=== PATIENT | female | born 1960 | race Caucasian/White ===

== ENCOUNTER 2016-07-20 17:26 | Inpatient (IN) | payer OTHER ==
[~2016-07-20] VITALS: Ht 160 cm; Wt 70.3 kg
[2016-07-20 18:53] LABS: DIFF SLIDE NUMBER 127; MEAN CORPUSCULAR HEMOGLOBIN 30.6 pg (27.0-33.0); MEAN CORPUSCULAR HGB CONC 33.8 g/dl (32.0-36.5); MEAN CORPUSCULAR VOLUME 90.4 fl (80.0-96.0); PLATELET COUNT, AUTOMATED 248 k/mm3 (150-450); RED CELL DISTRIBUTION WIDTH 13.2 % (11.5-14.5); WHITE BLOOD COUNT 8.8 K/mm3 (4.0-10.0)
[2016-07-20 19:13] LABS: ALBUMIN/GLOBULIN RATIO 0.87 (1.00-1.93); ALKALINE PHOSPHATASE 119 U/L (45-117); ALT/SGPT 40 U/L (12-78); ANION GAP 7 MEQ/L (8-16); AST/SGOT 22 U/L (15-37); BILIRUBIN,DIRECT 0.2 MG/DL (0.0-0.2); BILIRUBIN,TOTAL 0.7 MG/DL (0.2-1.0); BLOOD UREA NITROGEN 13 MG/DL (7-18); CALCIUM LEVEL 9.7 MG/DL (8.5-10.1); CARBON DIOXIDE LEVEL 28 MEQ/L (21-32); CHLORIDE LEVEL 105 MEQ/L (98-107); CREATININE FOR GFR 0.86 MG/DL (0.55-1.02); GLOMERULAR FILTRATION RATE > 60.0 (>51); GLUCOSE, FASTING 107 MG/DL (70-105); POTASSIUM SERUM 3.7 MEQ/L (3.5-5.1); SODIUM LEVEL 140 MEQ/L (136-145); TOTAL PROTEIN 8.6 GM/DL (6.4-8.2)
--- NOTE | 2016-07-20 19:15 | REP ---
Clinical: Altered mental status. Comparison: None. Findings: Extensive low density changes to the bifrontal white matter tracts (left greater than right) with some element of sparing to the gyri and subtle extension to the temporal lobes. Some more subtle low density changes may also be beginning to extend into the posterior parietal region. There is no associated hemorrhage. There is mild effacement to the anterior horn of the left lateral ventricle. No extra-axial fluid collection is appreciated. The calvarium is intact. The sinuses and mastoid air cells are clear. Impression: Extensive low density changes to the bifrontal white matter tracts with subtle extension into the temporal lobes and possible early similar changes extending to the bilateral parietal lobes. Differential diagnosis includes underlying neoplasm, multiple sclerosis, demyelinating diseases, and somewhat less likely acute infarctions. Consider MRI pre and postcontrast for further investigation. Signed by Faisal Kilgore MD 07/20/2016 07:07 P
--- NOTE | 2016-07-20 19:17 | REP ---
Clinical: Altered mental status . Comparison: None . Findings: The mediastinum and cardiac silhouette are stable and within normal limits for portable technique. The lung russo are clear without acute consolidation, effusion, or pneumothorax. Skeletal structures are intact. Impression: Normal portable chest x-ray Signed by Faisal Kilgore MD 07/20/2016 07:09 P
[2016-07-20 19:28] LABS: BASOPHILS 1 % (0-4); EOSINOPHILS 1 % (0-5)
[2016-07-20] MEDS: NS 1,000 ML IV SCH (20:48)
[2016-07-20] MEDS: levETIRAcetam INJection 500 MG in D5W MINI-BAG PLUS 100 ML IV SCH ×2 (21:00→22:15)
[2016-07-20] MEDS ORDERED: levETIRAcetam 250MG TABLET (KEPPRA) PO SCH (21:00)
[2016-07-20] MEDS ORDERED: BISACODYL 5 MG TAB PO PRN (21:00)
[2016-07-20] MEDS ORDERED: ACETAMINOPHEN TAB 650MG DOSE (2X325MG) PO PRN (21:00)
[2016-07-20] MEDS ORDERED: ONDANSETRON 4MG/2ML VIAL (J2405) IV PRN (21:00)
[2016-07-20] MEDS ORDERED: LORazepam 2 MG/ML VIAL (J2060) IV PRN (21:30)
[2016-07-20] MEDS: PANTOPRAZOLE 40MG INJ (PROTONIX) (C9113) IV SCH (22:12)
[2016-07-20 22:40] VITALS: BP 134/84
--- NOTE | 2016-07-20 22:40 | REPUSA ---
MRI of the brain Clinical history: altered mental status, facial droop. Technique: Multiecho multiplanar MRI images of the brain were obtained bbefore and after administrati on of 14 mm of intravenous gadolinium Prohance contrast. Diffusion weighted images with ADC mapping w as also obtained. Comparison: CT, 07/20/2016. Findings: There is a large enhancing mass along the midline of the frontal lobes, measuring 4.5 x 4.3 x 2.7 cm. This causes splaying of the frontal horns of the lateral ventricles bilaterally. Severe surroundi ng edema and mass effect is noted, Predominately in the subcortical white matter. Effacement of the s ulci is noted throughout the frontal lobes bilaterally. There is no extra-axial fluid collection. Th e other midline intracranial structures do not demonstrate any gross abnormalities. The cervical cran ial junction is intact. The orbits are unremarkable. The visualized paranasal sinuses and mastoid air cells are clear. The osseous structures and superficial soft tissues are unremarkable. The vascular structures demonstrate appropriate flow voids. Impression: Large enchancing mass along the midline of the frontal lobes, considered neoplasm until p roven otherwise. Most common diagnoses will be glioblastoma multiforme. Extensive surrounding mass ef fect and edema throughout the frontal lobes bilaterally are noted, causing mass effect and displacing of the frontal horns of the lateral ventricles bilaterally. No discrete evidence of acute hemorrhage or infarct was identified. Dr. Sloan was notified of these findings at 10:30 PM on 07/20/2016.
--- NOTE | 2016-07-20 22:41 | HPE ---
DATE OF ADMISSION: 07/20/2016 PRIMARY CARE PHYSICIAN: Patient does not have a primary care physician. OBSTETRICS/GYNECOLOGY: Patient is following with [facility] and being seen by JORGE Alejo. CHIEF COMPLAINT: 1. Altered mental status. 2. Two episodes of falls. HISTORY OF PRESENT ILLNESS: Ms. Sifuentes is a 56-year-old female with past medical history of premenopause by age and history of abnormal Pap smear (20 plus years ago), who presented to the emergency room (ER) due to altered mental status. Patient is accompanied by her mother and her , who expressed that about six months ago, they noticed patient become more confused and forgetful. This includes both long and short-term memory. However, before that, patient was working at [employer]; however, six months ago, she lost her job and her assumed that this is because she became more forgetful. However, she does not have any inappropriate behavior. Patient does not drink alcohol or use illegal drugs. Patient does not have fever, chills or night sweats. For the past two weeks, her symptoms became worse. Last night, patient fell from the bed twice and when the found her, she was very confused; however, she was not asleep. This morning, when she walked downstairs, her noticed that she is very confused and she just stares and does not talk. Patient did not have any episode of losing control of bowel or bladder. Patient does not have history of herpes. Patient does not have a history of eating raw meat. Patient has not traveled outside of the [place]. According to her , she became quieter; however, patient did not have any change of speech. Patient also complained about a headache for the past two weeks; however, patient denies vision or hearing changes. Patient also did not have any episode of seizure or seizure-type activities. Patient's appetite has decreased for the past two months and she only eats about two times a day and her food intake has decreased. During visit, patient had one episode of clonic seizure that lasted about 5-6 seconds. Also, during the episode, patient had one episode of projectile vomiting. Jerking mostly involved upper extremities. According to the patient' s family, this is new for her and she never had seizure-like activities. ALLERGIES: No known drug allergies. PAST MEDICAL HISTORY: 1. History of abnormal Pap smear 20 plus years ago. 2. Premenopause by age. PAST SURGICAL HISTORY: 1. Surgical laser cone by Dr. Cohen. 2. Lasik bilaterally, which was done 04/2011. HOME MEDICATIONS: None. SOCIAL HISTORY: Patient lives with her . According to the , patient stopped drinking about 1997; however, before that, patient was drinking occasionally. Patient does not have a history of tobacco use. Patient does not have history of illicit drug use. Patient has one dog. Patient has no children. Patient has traveled to the [facility] 20 years ago. FAMILY HISTORY: According to the patient's , patient has one sister and two brothers. One brother had multiple surgeries due to cancer; however, he does not know what kind of cancer. Patient's one sister and one brother have diabetes. Patient's mother has macular degeneration. Patient's mother is alive and has hypertension. REVIEW OF SYSTEMS: Review of systems cannot be obtained due to patient's altered mental status. PHYSICAL EXAMINATION: VITAL SIGNS: Temperature 97.1, pulse 89, respiratory rate 16, blood pressure 133/94, pulse oximetry 98% on room air. GENERAL APPEARANCE: Patient was lying in bed. Patient is awake, but not oriented to time, place and person. Patient responds to vocal commands. NECK: Soft. No lymphadenopathy. No thyromegaly. No jugular venous distention (JVD). HEART: Regular rate and rhythm. Normal S1, S2. ABDOMEN: Soft, nontender. Positive bowel sounds in all quadrants. LUNGS: Patient has clear breath sounds bilaterally. Good air movement. NEUROLOGIC: Cranial nerves II-XII cannot be obtained due to altered mental status. EXTREMITIES: Patient has no extremity weakness bilaterally; however, no lower extremity edema was appreciated. Patient has plus 2 pulses in both lower extremities. Patient has weak floorperson of both upper extremities. LABORATORY DATA: White blood cells 8.8, red blood cells 5.06, hemoglobin 15.5, hematocrit 45.7, MCV 90.4, MCH 30.6, MCHC 33.8, RDW 13.2, platelet count 243. Neutrophil percentage 66, lymphocyte percentage 33, monocyte 4, eosinophil 1, basophile 1, atypical lymphocytes 6, <<10:23>> normal, red blood cell morphology normal. Sodium 140, potassium 3.7, chloride 105, carbon dioxide 28, anion gap 7, BUN 13, creatinine 0.86, glomerular filtration rate 160, fasting glucose 107, lactic acid 1.3, calcium 9.7. Total bilirubin 0.7, direct bilirubin 0.2, AST 22, ALT 40, alkaline phosphatase 119, ammonia 10, total protein 8.6, albumin 4. Thyroid stimulating hormone (TSH) is pending. IMAGING TECHNIQUES: Head CT without contrast shows extensive low density changes to the bifrontal white matter tracts with subtle extension into the temporal lobe and possible early similar changes extending to the bilateral parietal lobes. Chest x-ray was negative. ASSESSMENT AND PLAN: 1. Altered mental status. Head CT raises the possibility to include neoplasm, multiple sclerosis, demyelinated disease. MRI pre- and post-contrast was ordered and result is pending at this time. Also, we have consulted Dr. Link. Appreciate Dr. Link's recommendations. Also, we have ordered an electroencephalogram (EEG), as well as a neurological check every 4 hours and, due to the possibility of aspiration, we will make the patient nothing by mouth and will start patient on intravenous (IV) fluid with aspiration precautions. Also, we have ordered a thyroid stimulating hormone (TSH) and the result is pending. Urinalysis (UA) and urine toxicology is pending at this time. 2. Possible seizure activity . We have ordered an EEG. Also, we have started patient on Keppra 500 mg IV twice a day, as well as Ativan 1 mg every 2 hours as needed for anxiety and/or agitation. At this point, patient is stable. Also, patient is nothing by mouth and on IV fluid with gastrointestinal (GI) prophylaxis. 3. Abnormal electrocardiogram (EKG). EKG, which was performed at the emergency room (ER) indicated sinus rhythm with possible left axis deviation. Also, patient has ST depression, mostly on the anterior leads. Therefore, I have ordered cardiac markers. Results are pending at this time. Due to altered mental status, patient does not provide accurate description of her symptoms and is denying chest pain. We will continue cardiac markers for three sets every 6 hours. 4. Deep venous thrombosis (DVT) prophylaxis. Patient is on Lovenox. 5. 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 Patient is stable. My preceptor for this patient encounter was Dr. William Mills. The preceptor was physically present in the building during the encounter and was fully available as needed. All aspects of the patient interview, examination, medical decision-making process, and medical care plan development were reviewed and approved by the preceptor. The preceptor is aware and concurs with the plan as stated in the body of this note and will attest to such by his/her co-signature. [facility]
[2016-07-20] MEDS ORDERED: dexameTHASONE 20 MG/5 ML VIAL (J1100) IV ONE (23:45)
[2016-07-20] MEDS ORDERED: dexameTHASONE 4 MG/ML 1ML VIAL (J1100) IV ONE (23:45)
--- NOTE | 2016-07-21 01:27 | CR ---
DATE OF CONSULTATION: 07/21/2016 PLEASE SEE MY TYPED NOTE. IT WILL SERVE MY CONSULT.
[2016-07-21 04:00] VITALS: BP 128/73
[2016-07-21 05:35] LABS: DIFF SLIDE NUMBER 73; MEAN CORPUSCULAR HEMOGLOBIN 30.5 pg (27.0-33.0); MEAN CORPUSCULAR HGB CONC 33.6 g/dl (32.0-36.5); MEAN CORPUSCULAR VOLUME 90.7 fl (80.0-96.0); PLATELET COUNT, AUTOMATED 247 k/mm3 (150-450); RED CELL DISTRIBUTION WIDTH 13.2 % (11.5-14.5); WHITE BLOOD COUNT 15.2 K/mm3 (4.0-10.0)
[2016-07-21 05:51] LABS: ALBUMIN 3.7 GM/DL (3.2-5.2); ALBUMIN/GLOBULIN RATIO 0.79 (1.00-1.93); ALKALINE PHOSPHATASE 114 U/L (45-117); ALT/SGPT 36 U/L (12-78); ANION GAP 8 MEQ/L (8-16); AST/SGOT 19 U/L (15-37); BILIRUBIN,TOTAL 0.8 MG/DL (0.2-1.0); BLOOD UREA NITROGEN 12 MG/DL (7-18); CARBON DIOXIDE LEVEL 25 MEQ/L (21-32); CHLORIDE LEVEL 105 MEQ/L (98-107); CREATININE FOR GFR 0.81 MG/DL (0.55-1.02); GLOMERULAR FILTRATION RATE > 60.0 (>51); GLUCOSE, FASTING 142 MG/DL (70-105); MAGNESIUM LEVEL 2.1 MG/DL (1.8-2.4); POTASSIUM SERUM 3.6 MEQ/L (3.5-5.1); SODIUM LEVEL 138 MEQ/L (136-145); TOTAL PROTEIN 8.4 GM/DL (6.4-8.2)
[2016-07-21] MEDS: dexameTHASONE 4 MG/ML 1ML VIAL (J1100) IV SCH ×3 (06:14→18:38)
--- NOTE | 2016-07-21 07:29 | ECGEPIP ---
Stationary ECG Study [facility] - ED Test Date: 2016-07-20 Pat Name: RASTA SIMEON Department: Room: - Gender: F Financial Service Representative: SinB: 1960 Requested By: DAVID Marroquin Order Number: [id number] Reading MD: Eugene Milian Measurements Intervals [place] Rate: 83 P: 4 SD: 145 QRS: -30 QRSD: 82 T: -11 QT: 329 QTc: 389 Interpretive Statements SINUS RHYTHM BORDERLINE LEFT AXIS DEVIATION ST DEVIATION AND MODERATE T-WAVE ABNORMALITY, CONSIDER ANTERIOR ISCHEMIA NO PRIORS Electronically Signed On 07-21-2016 7:29:26 EDT by Eugene Milian
[2016-07-21 08:00] VITALS: BP 149/90
[2016-07-21] MEDS: NS 1,000 ML IV SCH ×2 (08:24→19:03)
[2016-07-21] MEDS: ENOXAPARIN 40 MG/0.4 ML SYRINGE (J1650) SC SCH (10:49)
[2016-07-21] MEDS: levETIRAcetam INJection 500 MG in D5W MINI-BAG PLUS 100 ML IV SCH ×2 (10:49→20:14)
[2016-07-21 12:00] VITALS: BP_SYST 109; BP_SYST 149; BP_DIAS 50; BP_DIAS 90
--- NOTE | 2016-07-21 13:37 | IPNPDOC ---
Text Note Date of Service The patient was seen on 07/21/16. NOTE Subjective: Patient with aphasia. Denies any complaints. Objective: Vitals: (see below) General: No acute distress, laying comfortably in bed. HEENT: Moist mucous membranes. Neck: No JVD or lymphadenopathy Cardiac: RRR, No murmurs Pulm: Clear to auscultation b/l. No wheezing, rhonchi Abd: NT/ND + BS Ext: No edema or cyanosis Neuro: Strength 5/5 BUE. Moving lower extremities however is not consistent with following commands. Minimally verbal. Does have significant aphasia. CN 2-12 intact. F to N intact Negative Babinki. DTR 2-3+ throughout Labs (see below) Images: MRI Brain 07/20/16 There is a large enhancing mass along the midline of the frontal lobes, measuring 4.5 x 4.3 x 2.7 cm. This causes splaying of the frontal horns of the lateral ventricles bilaterally. Severe surrounding edema and mass effect is noted, Predominately in the subcortical white matter. Effacement of the sulci is noted throughout the frontal lobes bilaterally. There is no extra-axial fluid collection. The other midline intracranial structures do not demonstrate any gross abnormalities. The cervical cranial junction is intact. The orbits are unremarkable. The visualized paranasal sinuses and mastoid air cells are clear. The osseous structures and superficial soft tissues are unremarkable. The vascular structures demonstrate appropriate flow voids. Impression: Large enchancing mass along the midline of the frontal lobes, considered neoplasm until proven otherwise. Most common diagnoses will be glioblastoma multiforme. Extensive surrounding mass effect and edema throughout the frontal lobes bilaterally are noted, causing mass effect and displacing of the frontal horns of the lateral ventricles bilaterally. No discrete evidence of acute hemorrhage or infarct was identified. Assessment/Plan 1. Altered mental status/metabolic encephalopathy secondary to a large enhancing mass along the midline of the frontal lobes with cerebral edema/ seizure. MRI (see above). MRA/MRV pending. Patient does have extensive cerebral edema and is on Decadron per neurosurgery. Dr. Calabrese will be scheduling the patient for surgery on . Continue neuro checks. Neurology consulted as well given the patient's seizure activity on admission. Patient has also been maintained on Keppra 500 twice a day. EEG pending. 2. Abnormal EKG with ST depressions- patient denies chest pain. Cardiac enzymes negative. ? Related to the patient's underlying cerebral pathology 3. Leukocytosis- likely reactive secondary to steroids. No sores infection. Afebrile. 4.H/o harrison's palsy with left facial droop. Stable. DVT prophy: Lovenox Patient has a very poor prognosis given the extent of this mass and extensive cerebral edema. Patient is medically optimized for resection of the above cerebral mass. VS,Fishbone, I+O VS, Fishbone, I+O Laboratory Tests 07/20/16 18:42 Red Blood Count 5.06, Mean Corpuscular Volume 90.4, Mean Corpuscular Hemoglobin 30.6, Mean Corpuscular Hemoglobin Concent 33.8, Red Cell Distribution Width 13.2 07/21/16 05:11 Red Blood Count 4.95, Mean Corpuscular Volume 90.7, Mean Corpuscular Hemoglobin 30.5, Mean Corpuscular Hemoglobin Concent 33.6, Red Cell Distribution Width 13.2 , Calcium Level 9.0, Aspartate Amino Transf (AST/SGOT) 19, Alanine Aminotransferase (ALT/SGPT) 36, Alkaline Phosphatase 114, Total Bilirubin 0.8, Total Protein 8.4 H, Albumin 3.7 Vital Signs Date Time Temp Pulse Resp B/P (MAP) Pulse Ox O2 Delivery O2 Flow Rate FiO2 07/21/16 08:17 Room Air 07/21/16 08:00 97.4 95 18 149/90 (109) 99 I&O- Last 24 Hours up to 6 AM 07/21/16 05:59 Intake Total 0 ml Balance 0 ml STEFFI ELISE MD July 21, 2016 13:37
--- NOTE | 2016-07-21 14:53 | ECHO ---
DATE OF PROCEDURE: 07/21/2016 REFERRING PHYSICIAN: Dr. Adrian Murrieta DO. INDICATION: Abnormal ECG. HEIGHT: 157 cm. WEIGHT: 73 kg. MEASUREMENTS: Aortic root - 3.6 cm Left atrium - 2.4 cm Ventricular septum - 0.96 cm Posterior wall - 1.02 cm Left ventricle diastole - 3.9 cm LVOT - 1.8 cm Inferior vena cava - 1.7 cm DOPPLER MEASUREMENTS: Aortic valve velocity 171 cm/s LVOT velocity 108 cm/s LVOT VTI - 19.6 cm Mitral E velocity - 67.7 cm/s, mitral A velocity - 73.1 cm/s, Mitral deceleration time 162 ms. Pulmonary artery systolic pressure 21 mmHg by pulmonary acceleration method. MITRAL ANNULAR TISSUE DOPPLER: E prime septal - 10.0 cm/s E prime lateral - 9.6 cm/s DESCRIPTION: The rhythm was sinus. The image quality was fair. No pericardial effusion. This is a 2D, M-mode, color flow Doppler and pulse wave Doppler examination including mitral annular tissue Doppler. CONCLUSIONS: 1. Normal echocardiogram Doppler. 2. Normal left ventricle internal dimensions and wall thickness. Normal LV wall motion and wall thickening. No regional wall motion abnormalities. Normal LV systolic function. LVEF of 65% by visual estimate. Normal LV diastolic function.
[2016-07-21 16:00] VITALS: BP 120/56
--- NOTE | 2016-07-21 17:34 | REP ---
MRA BRAIN WITHOUT CONTRAST: HISTORY: Altered mental status. 3D [id number] MR angiography was performed at the level of the [place]. There is no aneurysm or arteriovenous malformation. Mild atherosclerotic disease involves the cavernous internal carotid arteries. Major intracranial vessels are patent. The vertebral arteries are equal in size. There are two prominent external carotid artery branches that appear to supply the patient's anterior cranial fossa meningoma. IMPRESSION: 1. There is no aneurysm or arteriovenous malformation. 2. Atherosclerotic disease as described above. 3. There are two prominent external carotid artery branches that appear to supply the anterior cranial fossa. Meningoma. MRA BRAIN WITHOUT AND WITH CONTRAST: HISTORY: Meningeoma. CONTRAST: ProHance 14.5 mL. Unenhanced 2D time of flight and contrast enhanced MR venography were performed. There are no filling defects in the deep venous system or dural sinuses. The right transverse and sigmoid sinuses are hypoplastic. There is stenosis of the distal right transverse sinus. A large anterior cranial fossa meningioma is present. There is intense homogenous enhancement with contrast. Several prominent blood vessels are present in the meningioma. There are no definite draining vessels overlying the meningioma. IMPRESSION: 1. There is no sinus thrombosis. 2. There is stenosis of the distal right transverse sinus. 3. There are several prominent vascular structures in the anterior cranial fossa meningoma. IMPRESSION: There are several prominent blood vessels in the anterior cranial fossa meningoma. Signed by Augusto Friedman MD 07/22/2016 08:52 A
[2016-07-21 20:00] VITALS: BP 141/72
[2016-07-21] MEDS: PANTOPRAZOLE 40MG INJ (PROTONIX) (C9113) IV SCH (20:13)
--- NOTE | 2016-07-21 20:37 | CR ---
DATE OF CONSULTATION: 07/21/2016 REFERRING PHYSICIAN: Dr. William Mills REASON FOR CONSULTATION: Altered mental status, seizures. HISTORY OF PRESENT ILLNESS: Petra Sifuentes is a 56-year-old woman with a history of premenopause by age, who presented to [facility] Emergency Department due to altered mental status for the last 6 months. According to the patient's , she became more confused and forgetful 6 months ago. She had difficulty with short-term and long-term memory. She does not have a primary care physician. She used to work at a [employer] but lost her job. Her thinks that it may be related to her memory difficulty. She later started working at [employer] and was let go as well. In the emergency department yesterday, she had a witnessed two or three minutes generalized tonic-clonic seizure without tongue biting or urinary incontinence. She did not have any seizures in past. She has intermittent neck and back pain, which is occasional and mild. She off and on had headaches for the last 6-12 months. She did not seek medical attention. She never had seizures before. She denies dysphagia, dysarthria, diplopia, urinary incontinence. DIAGNOSTIC STUDIES: Her CT scan of head, MRI scan of brain were reviewed and showed a large paramedian bilateral frontal mass with severe bilateral frontal and central edema in a butterfly wing appearance. PAST MEDICAL HISTORY: History of abnormal Pap smear 20 years ago, premenopause by age. LASIK surgery of eyes bilaterally in 2011. HOME MEDICATIONS: None. SOCIAL HISTORY: She lives with her . She does not have any children. She currently does not work. She denies smoking, alcohol or illicit drugs. FAMILY HISTORY: Father of bone cancer. One brother had multiple surgeries due to cancer. does not know type of cancer. REVIEW OF SYSTEMS: All systems were reviewed and were found to be noncontributory except as mentioned in history present illness. PHYSICAL EXAMINATION: Temperature 96.8, pulse 96, respiratory rate 18, blood pressure 120/56. Heart: Regular rate and rhythm. Lungs: Clear to auscultation. No pedal edema. No gross musculoskeletal abnormalities. No skin lesions were identified. No rash. Ears, nose and throat examination is within normal limits. She is awake, alert, oriented to self mostly. She is unable to tell me day, date, month, year, name of president or place. Her recall is 0/3 at 5 minutes. She cannot spell world backwards. She cannot do serial sevens. Extraocular muscles are intact. No facial weakness. Tongue and uvula are midline. 5/5 strength in all four extremities. Deep tendon flexes are 1+ throughout. Gait is within normal limits. Her plantars are upgoing bilaterally. ASSESSMENT: 1. Suspected malignant brain tumor, which can be primary glioblastoma multiforme or metastatic brain tumor. 2. Central nervous system (SHOT COAT TENDER) lymphoma is in differential diagnosis. 3. SHOT COAT TENDER vasculitis is a less likely differential. 4. Generalized tonic-clonic seizures, related to above. 5. Difficulty with short and long-term memory, likely related to effects of malignant brain tumor on mammillary body and anterior thalamus. PLAN: 1. Increase Keppra to 1000 mg by mouth or intravenous. 2. Decadron 4 mg IV every 6 hours. 3. Neurosurgery plans to do craniotomy tomorrow or day after tomorrow. 4. Biopsy result will define her clinical outcome and long-term prognosis, which will be guarded if this tumor turns out to be glioblastoma.
--- NOTE | 2016-07-21 20:37 | EEG ---
DATE OF PROCEDURE: 07/21/2016 REFERRING PHYSICIAN: Hebert Perez MD DIAGNOSIS: Seizure. [id number] HISTORY: The patient is 56-year-old woman who was admitted at [facility] due to altered mental status. She had a generalized tonic-clonic seizure. She was found to have bilateral frontal suspected malignant brain tumor. She is currently on Keppra, dexamethasone, etc. TECHNICAL DESCRIPTION: This digital EEG was recorded by 21 scalp, ear and two EKG electrodes and was reviewed in bipolar and referential montages following reformatting in 10-20 international electrode placement system. INTERPRETATION: The patient was noted to be in awake and drowsy states during this EEG. Resting awake background rhythm consisted of 3 - 4 Hz delta activity measuring 15 - 100 microvolts in amplitude. Stage I and II sleep were reviewed and were symmetric bilaterally. Hyperventilation could not be performed. Photic stimulation remained unremarkable. EKG revealed normal sinus rhythm. Left greater than right frontal and central sharp waves were noted. No clinical or electrographic seizures were recorded. CONCLUSION: This EEG in awake, drowsy states, stage I and II sleep is abnormal due to presence of generalized slowing and disorganization of background consistent with nonspecific diffuse cerebral dysfunction such as seen in encephalopathy due to multiple potential causes including toxic, metabolic, infectious, autoimmune, medication related or multifocal structural brain abnormalities. In addition, bilateral frontal and central epileptiform discharges were noted consistent with focal cortical structural or functional abnormality with epileptic potential. Clinical correlation is recommended.
[2016-07-21 23:59] VITALS: BP 125/92
[2016-07-22] MEDS: dexameTHASONE 4 MG/ML 1ML VIAL (J1100) IV SCH ×5 (00:27→23:18)
[2016-07-22 04:00] VITALS: BP 124/60
[2016-07-22] MEDS: NS 1,000 ML IV SCH ×4 (04:05→23:18)
[2016-07-22 05:39] LABS: DIFF SLIDE NUMBER 47; MEAN CORPUSCULAR HEMOGLOBIN 30.6 pg (27.0-33.0); MEAN CORPUSCULAR HGB CONC 33.6 g/dl (32.0-36.5); MEAN CORPUSCULAR VOLUME 91.1 fl (80.0-96.0); PLATELET COUNT, AUTOMATED 258 k/mm3 (150-450); RED CELL DISTRIBUTION WIDTH 13.3 % (11.5-14.5); WHITE BLOOD COUNT 18.3 K/mm3 (4.0-10.0)
[2016-07-22 05:58] LABS: ALBUMIN 3.1 GM/DL (3.2-5.2); ALBUMIN/GLOBULIN RATIO 0.76 (1.00-1.93); ALKALINE PHOSPHATASE 94 U/L (45-117); ALT/SGPT 30 U/L (12-78); ANION GAP 6 MEQ/L (8-16); AST/SGOT 15 U/L (15-37); BILIRUBIN,TOTAL 0.4 MG/DL (0.2-1.0); BLOOD UREA NITROGEN 15 MG/DL (7-18); CALCIUM LEVEL 8.8 MG/DL (8.5-10.1); CARBON DIOXIDE LEVEL 24 MEQ/L (21-32); CHLORIDE LEVEL 112 MEQ/L (98-107); CREATININE FOR GFR 0.74 MG/DL (0.55-1.02); GLOMERULAR FILTRATION RATE > 60.0 (>51); GLUCOSE, FASTING 152 MG/DL (70-105); MAGNESIUM LEVEL 2.2 MG/DL (1.8-2.4); POTASSIUM SERUM 3.8 MEQ/L (3.5-5.1); SODIUM LEVEL 142 MEQ/L (136-145); TOTAL PROTEIN 7.2 GM/DL (6.4-8.2)
[2016-07-22 08:00] VITALS: BP 107/62
[2016-07-22] MEDS: ENOXAPARIN 40 MG/0.4 ML SYRINGE (J1650) SC SCH (09:04)
[2016-07-22] MEDS: levETIRAcetam INJection 500 MG in D5W MINI-BAG PLUS 100 ML IV SCH (09:04)
[2016-07-22 12:15] VITALS: BP 112/71
[2016-07-22 15:30] VITALS: BP 120/73
--- NOTE | 2016-07-22 15:36 | IPNPDOC ---
Text Note Date of Service The patient was seen on 07/22/16. NOTE Subjective: Patient more awake and alert today - sitting in chair, conversing. Denies any complaints. Objective: Vitals: (see below) General: No acute distress, laying comfortably in bed. HEENT: Moist mucous membranes. Neck: No JVD or lymphadenopathy Cardiac: RRR, No murmurs Pulm: Clear to auscultation b/l. No wheezing, rhonchi Abd: NT/ND + BS Ext: No edema or cyanosis Neuro: Strength 5/5 BUE and BLE. AAOx3 CN 2-12 intact. F to N intact Negative Babinki. DTR 2-3+ throughout Labs (see below) Images: MRI Brain 07/20/16 There is a large enhancing mass along the midline of the frontal lobes, measuring 4.5 x 4.3 x 2.7 cm. This causes splaying of the frontal horns of the lateral ventricles bilaterally. Severe surrounding edema and mass effect is noted, Predominately in the subcortical white matter. Effacement of the sulci is noted throughout the frontal lobes bilaterally. There is no extra-axial fluid collection. The other midline intracranial structures do not demonstrate any gross abnormalities. The cervical cranial junction is intact. The orbits are unremarkable. The visualized paranasal sinuses and mastoid air cells are clear. The osseous structures and superficial soft tissues are unremarkable. The vascular structures demonstrate appropriate flow voids. Impression: Large enchancing mass along the midline of the frontal lobes, considered neoplasm until proven otherwise. Most common diagnoses will be glioblastoma multiforme. Extensive surrounding mass effect and edema throughout the frontal lobes bilaterally are noted, causing mass effect and displacing of the frontal horns of the lateral ventricles bilaterally. No discrete evidence of acute hemorrhage or infarct was identified. MRA/MRV 07/21/16 There is no aneurysm or arteriovenous malformation. Mild atherosclerotic disease involves the cavernous internal carotid arteries. Major intracranial vessels are patent. The vertebral arteries are equal in size. There are two prominent external carotid artery branches that appear to supply the patient's anterior cranial fossa meningoma. IMPRESSION: 1. There is no aneurysm or arteriovenous malformation. 2. Atherosclerotic disease as described above. 3. There are two prominent external carotid artery branches that appear to supply the anterior cranial fossa. Meningoma. MRA BRAIN WITHOUT AND WITH CONTRAST: HISTORY: Meningeoma. Unenhanced 2D time of flight and contrast enhanced MR venography were performed. There are no filling defects in the deep venous system or dural sinuses. The right transverse and sigmoid sinuses are hypoplastic. There is stenosis of the distal right transverse sinus. A large anterior cranial fossa meningioma is present. There is intense homogenous enhancement with contrast. Several prominent blood vessels are present in the meningioma. There are no definite draining vessels overlying the meningioma. IMPRESSION: 1. There is no sinus thrombosis. 2. There is stenosis of the distal right transverse sinus. 3. There are several prominent vascular structures in the anterior cranial fossa meningoma. IMPRESSION: There are several prominent blood vessels in the anterior cranial fossa meningoma. Assessment/Plan 1. Also mental status secondary to a large enhancing mass along the midline of the frontal lobes. MRI (see above). MRA/MRV (see above). Patient does have extensive cerebral edema and is on Decadron per neurosurgery. Dr. Calabrese will be scheduling the patient for surgery on . Continue neuro checks. Neurology consulted as well given the patient's seizure activity on admission. Patient has also been maintained on Keppra 1000 twice a day (Increased from 500mg given above EEG results. 2. Abnormal EKG with ST depressions- patient denies chest pain. Cardiac enzymes negative. ? Related to the patient's underlying cerebral pathology 3. Leukocytosis- likely reactive secondary to steroids. No sores infection. Afebrile. DVT prophy: Lovenox Patient has a very poor prognosis given the extent of this mass and extensive cerebral edema. Patient is medically optimized for resection of the above cerebral mass. VS,Fishbone, I+O VS, Fishbone, I+O Laboratory Tests 07/22/16 05:19 Red Blood Count 4.54, Mean Corpuscular Volume 91.1, Mean Corpuscular Hemoglobin 30.6, Mean Corpuscular Hemoglobin Concent 33.6, Red Cell Distribution Width 13.3 , Calcium Level 8.8, Aspartate Amino Transf (AST/SGOT) 15, Alanine Aminotransferase (ALT/SGPT) 30, Alkaline Phosphatase 94, Total Bilirubin 0.4, Total Protein 7.2, Albumin 3.1 L Vital Signs Date Time Temp Pulse Resp B/P (MAP) Pulse Ox O2 Delivery O2 Flow Rate FiO2 07/22/16 12:15 98.7 99 20 112/71 (85) 99 Room Air I&O- Last 24 Hours up to 6 AM 07/22/16 06:00 Intake Total 2225 ml Output Total 250 ml Balance 1975 ml STEFFI ELISE MD July 22, 2016 15:36
[2016-07-22 19:13] VITALS: BP 110/54
[2016-07-22] MEDS: PANTOPRAZOLE 40MG INJ (PROTONIX) (C9113) IV SCH (21:49)
[2016-07-22] MEDS: levETIRAcetam 250MG TABLET (KEPPRA) PO SCH (21:49)
[2016-07-22 23:20] VITALS: BP 102/65
[2016-07-23 03:03] VITALS: BP 127/72
[2016-07-23] MEDS: dexameTHASONE 4 MG/ML 1ML VIAL (J1100) IV SCH ×4 (05:23→23:51)
[2016-07-23 06:18] LABS: ALBUMIN 2.7 GM/DL (3.2-5.2); ALBUMIN/GLOBULIN RATIO 0.69 (1.00-1.93); ALKALINE PHOSPHATASE 96 U/L (45-117); ALT/SGPT 25 U/L (12-78); ANION GAP 10 MEQ/L (8-16); AST/SGOT 12 U/L (15-37); BILIRUBIN,TOTAL 0.3 MG/DL (0.2-1.0); BLOOD UREA NITROGEN 13 MG/DL (7-18); CALCIUM LEVEL 8.1 MG/DL (8.5-10.1); CARBON DIOXIDE LEVEL 19 MEQ/L (21-32); CHLORIDE LEVEL 111 MEQ/L (98-107); CREATININE FOR GFR 0.61 MG/DL (0.55-1.02); GLOMERULAR FILTRATION RATE > 60.0 (>51); GLUCOSE, FASTING 140 MG/DL (70-105); MAGNESIUM LEVEL 2.1 MG/DL (1.8-2.4); POTASSIUM SERUM 3.7 MEQ/L (3.5-5.1); SODIUM LEVEL 140 MEQ/L (136-145); TOTAL PROTEIN 6.6 GM/DL (6.4-8.2)
[2016-07-23 06:19] LABS: DIFF SLIDE NUMBER 29; MEAN CORPUSCULAR HEMOGLOBIN 30.2 pg (27.0-33.0); MEAN CORPUSCULAR HGB CONC 32.9 g/dl (32.0-36.5); MEAN CORPUSCULAR VOLUME 91.8 fl (80.0-96.0); PLATELET COUNT, AUTOMATED 234 k/mm3 (150-450); RED CELL DISTRIBUTION WIDTH 13.5 % (11.5-14.5); WHITE BLOOD COUNT 17.7 K/mm3 (4.0-10.0)
[2016-07-23 08:00] VITALS: BP 123/86
[2016-07-23] MEDS: NS 1,000 ML IV SCH ×2 (08:12→18:12)
[2016-07-23] MEDS: levETIRAcetam 250MG TABLET (KEPPRA) PO SCH ×2 (09:55→21:08)
[2016-07-23] MEDS: ENOXAPARIN 40 MG/0.4 ML SYRINGE (J1650) SC SCH (09:59)
[2016-07-23 11:30] VITALS: BP 118/68
--- NOTE | 2016-07-23 13:36 | REP ---
MRA BRAIN WITHOUT CONTRAST: HISTORY: Altered mental status. 3D [id number] MR angiography was performed at the level of the [place]. A small aneurysm is present arising from the cavernous right internal carotid artery. The aneurysm measures 2.6 x 2.6 mm. The aneurysm projects medial from the cavernous right internal carotid artery. There is no other aneurysm or arteriovenous malformation. There are no atherosclerotic lesions. Major intracranial vessels are patent. The vertebral arteries are equal in size. 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 Signed by Augusto Friedman MD 07/23/2016 01:39 P
--- NOTE | 2016-07-23 14:29 | IPNPDOC ---
Text Note Date of Service The patient was seen on 07/23/16. NOTE Subjective: Patient awake and alert today. Denies any complaints. Objective: Vitals: (see below) General: No acute distress, laying comfortably in bed. HEENT: Moist mucous membranes. Neck: No JVD or lymphadenopathy Cardiac: RRR, No murmurs Pulm: Clear to auscultation b/l. No wheezing, rhonchi Abd: NT/ND + BS Ext: No edema or cyanosis Neuro: Strength 5/5 BUE and BLE. AAOx3 Left facial droop h/o harrison's palsy CN 2-12 intact. F to N intact Negative Babinki. DTR 2-3+ throughout Labs (see below) Images: MRI Brain 07/20/16 There is a large enhancing mass along the midline of the frontal lobes, measuring 4.5 x 4.3 x 2.7 cm. This causes splaying of the frontal horns of the lateral ventricles bilaterally. Severe surrounding edema and mass effect is noted, Predominately in the subcortical white matter. Effacement of the sulci is noted throughout the frontal lobes bilaterally. There is no extra-axial fluid collection. The other midline intracranial structures do not demonstrate any gross abnormalities. The cervical cranial junction is intact. The orbits are unremarkable. The visualized paranasal sinuses and mastoid air cells are clear. The osseous structures and superficial soft tissues are unremarkable. The vascular structures demonstrate appropriate flow voids. Impression: Large enchancing mass along the midline of the frontal lobes, considered neoplasm until proven otherwise. Most common diagnoses will be glioblastoma multiforme. Extensive surrounding mass effect and edema throughout the frontal lobes bilaterally are noted, causing mass effect and displacing of the frontal horns of the lateral ventricles bilaterally. No discrete evidence of acute hemorrhage or infarct was identified. MRA/MRV 07/21/16 There is no aneurysm or arteriovenous malformation. Mild atherosclerotic disease involves the cavernous internal carotid arteries. Major intracranial vessels are patent. The vertebral arteries are equal in size. There are two prominent external carotid artery branches that appear to supply the patient's anterior cranial fossa meningoma. IMPRESSION: 1. There is no aneurysm or arteriovenous malformation. 2. Atherosclerotic disease as described above. 3. There are two prominent external carotid artery branches that appear to supply the anterior cranial fossa. Meningoma. MRA BRAIN WITHOUT AND WITH CONTRAST: HISTORY: Meningeoma. Unenhanced 2D time of flight and contrast enhanced MR venography were performed. There are no filling defects in the deep venous system or dural sinuses. The right transverse and sigmoid sinuses are hypoplastic. There is stenosis of the distal right transverse sinus. A large anterior cranial fossa meningioma is present. There is intense homogenous enhancement with contrast. Several prominent blood vessels are present in the meningioma. There are no definite draining vessels overlying the meningioma. IMPRESSION: 1. There is no sinus thrombosis. 2. There is stenosis of the distal right transverse sinus. 3. There are several prominent vascular structures in the anterior cranial fossa meningoma. IMPRESSION: There are several prominent blood vessels in the anterior cranial fossa meningoma. Assessment/Plan 1. Also mental status secondary to a large enhancing mass along the midline of the frontal lobes. MRI (see above). MRA/MRV (see above). Patient does have extensive cerebral edema and is on Decadron per neurosurgery. Dr. Calabrese will be scheduling the patient for surgery on Wednesday. Continue neuro checks. Neurology consulted as well given the patient's seizure activity on admission. Patient has also been maintained on Keppra 1000 twice a day (Increased from 500mg given above EEG results. 2. Abnormal EKG with ST depressions- patient denies chest pain. Cardiac enzymes negative. ? Related to the patient's underlying cerebral pathology 3. Leukocytosis- likely reactive secondary to steroids. No sores infection. Afebrile. 4. H/o harrison's palsy with left facial droop. Stable. DVT prophy: Lovenox Patient has a very poor prognosis given the extent of this mass and extensive cerebral edema. Patient is medically optimized for resection of the above cerebral mass. RCRI score 1; 0.9% risk of major cardiac event VS,Fishbone, I+O VS, Fishbone, I+O Laboratory Tests 07/23/16 05:46 Red Blood Count 4.26, Mean Corpuscular Volume 91.8, Mean Corpuscular Hemoglobin 30.2, Mean Corpuscular Hemoglobin Concent 32.9, Red Cell Distribution Width 13.5 , Calcium Level 8.1 L, Aspartate Amino Transf (AST/SGOT) 12 L, Alanine Aminotransferase (ALT/SGPT) 25, Alkaline Phosphatase 96, Total Bilirubin 0.3, Total Protein 6.6, Albumin 2.7 L Vital Signs Date Time Temp Pulse Resp B/P (MAP) Pulse Ox O2 Delivery O2 Flow Rate FiO2 07/23/16 11:30 98.3 62 22 118/68 (85 94 Room Air I&O- Last 24 Hours up to 6 AM 07/23/16 06:00 Intake Total 3010 ml Output Total 750 ml Balance 2260 ml STEFFI ELISE MD Jul 23, 2016 14:29
[2016-07-23 16:00] VITALS: BP 124/85
[2016-07-23 19:16] VITALS: BP 129/81
[2016-07-23 20:00] VITALS: PULSE 66; PULSE 69
[2016-07-23] MEDS: PANTOPRAZOLE 40MG INJ (PROTONIX) (C9113) IV SCH (21:07)
[2016-07-24] VITALS (10 sets, daily range): BP systolic 103–135; BP diastolic 67–79; PULSE 47–73
[2016-07-24] MEDS: dexameTHASONE 4 MG/ML 1ML VIAL (J1100) IV SCH ×3 (05:37→18:17)
[2016-07-24] MEDS: NS 1,000 ML IV SCH (05:38)
[2016-07-24 06:03] LABS: DIFF SLIDE NUMBER 16; MEAN CORPUSCULAR HEMOGLOBIN 30.2 pg (27.0-33.0); MEAN CORPUSCULAR HGB CONC 33.1 g/dl (32.0-36.5); MEAN CORPUSCULAR VOLUME 91.4 fl (80.0-96.0); PLATELET COUNT, AUTOMATED 238 k/mm3 (150-450); RED CELL DISTRIBUTION WIDTH 13.4 % (11.5-14.5); WHITE BLOOD COUNT 11.6 K/mm3 (4.0-10.0)
[2016-07-24 06:15] LABS: ALBUMIN 2.6 GM/DL (3.2-5.2); ALBUMIN/GLOBULIN RATIO 0.68 (1.00-1.93); ALKALINE PHOSPHATASE 95 U/L (45-117); ALT/SGPT 26 U/L (12-78); ANION GAP 9 MEQ/L (8-16); AST/SGOT 12 U/L (15-37); BILIRUBIN,TOTAL 0.2 MG/DL (0.2-1.0); BLOOD UREA NITROGEN 14 MG/DL (7-18); CALCIUM LEVEL 8.1 MG/DL (8.5-10.1); CARBON DIOXIDE LEVEL 23 MEQ/L (21-32); CHLORIDE LEVEL 108 MEQ/L (98-107); CREATININE FOR GFR 0.74 MG/DL (0.55-1.02); GLOMERULAR FILTRATION RATE > 60.0 (>51); GLUCOSE, FASTING 137 MG/DL (70-105); MAGNESIUM LEVEL 2.1 MG/DL (1.8-2.4); POTASSIUM SERUM 3.6 MEQ/L (3.5-5.1); SODIUM LEVEL 140 MEQ/L (136-145); TOTAL PROTEIN 6.4 GM/DL (6.4-8.2)
[2016-07-24] MEDS ORDERED: POTASSIUM CHLORIDE 10 MEQ SR TABLET PO ONE (07:45)
[2016-07-24] MEDS: ENOXAPARIN 40 MG/0.4 ML SYRINGE (J1650) SC SCH (08:15)
[2016-07-24] MEDS: levETIRAcetam 250MG TABLET (KEPPRA) PO SCH ×2 (08:15→20:37)
[2016-07-24] MEDS ORDERED: SLF 3 ML SYR IV PRN (08:30)
[2016-07-24] MEDS: SLF 3 ML SYR IV SCH ×2 (12:27→18:18)
--- NOTE | 2016-07-24 12:58 | IPNPDOC ---
Text Note Date of Service The patient was seen on 07/24/16. NOTE Subjective: Feels well today. OOB and ambulating. No deficits. Objective: Vitals: (see below) General: No acute distress, laying comfortably in bed. HEENT: Moist mucous membranes. Neck: No JVD or lymphadenopathy Cardiac: RRR, No murmurs Pulm: Clear to auscultation b/l. No wheezing, rhonchi Abd: NT/ND + BS Ext: No edema or cyanosis Neuro: Strength 5/5 BUE and BLE. AAOx3 CN 2-12 intact. H/o harrison's palsy with left facial droop. F to N intact Negative Babinki. DTR 2-3+ throughout Labs (see below) Images: MRI Brain 07/20/16 There is a large enhancing mass along the midline of the frontal lobes, measuring 4.5 x 4.3 x 2.7 cm. This causes splaying of the frontal horns of the lateral ventricles bilaterally. Severe surrounding edema and mass effect is noted, Predominately in the subcortical white matter. Effacement of the sulci is noted throughout the frontal lobes bilaterally. There is no extra-axial fluid collection. The other midline intracranial structures do not demonstrate any gross abnormalities. The cervical cranial junction is intact. The orbits are unremarkable. The visualized paranasal sinuses and mastoid air cells are clear. The osseous structures and superficial soft tissues are unremarkable. The vascular structures demonstrate appropriate flow voids. Impression: Large enchancing mass along the midline of the frontal lobes, considered neoplasm until proven otherwise. Most common diagnoses will be glioblastoma multiforme. Extensive surrounding mass effect and edema throughout the frontal lobes bilaterally are noted, causing mass effect and displacing of the frontal horns of the lateral ventricles bilaterally. No discrete evidence of acute hemorrhage or infarct was identified. MRA/MRV 07/21/16 There is no aneurysm or arteriovenous malformation. Mild atherosclerotic disease involves the cavernous internal carotid arteries. Major intracranial vessels are patent. The vertebral arteries are equal in size. There are two prominent external carotid artery branches that appear to supply the patient's anterior cranial fossa meningoma. IMPRESSION: 1. There is no aneurysm or arteriovenous malformation. 2. Atherosclerotic disease as described above. 3. There are two prominent external carotid artery branches that appear to supply the anterior cranial fossa. Meningoma. MRA BRAIN WITHOUT AND WITH CONTRAST: HISTORY: Meningeoma. Unenhanced 2D time of flight and contrast enhanced MR venography were performed. There are no filling defects in the deep venous system or dural sinuses. The right transverse and sigmoid sinuses are hypoplastic. There is stenosis of the distal right transverse sinus. A large anterior cranial fossa meningioma is present. There is intense homogenous enhancement with contrast. Several prominent blood vessels are present in the meningioma. There are no definite draining vessels overlying the meningioma. IMPRESSION: 1. There is no sinus thrombosis. 2. There is stenosis of the distal right transverse sinus. 3. There are several prominent vascular structures in the anterior cranial fossa meningoma. IMPRESSION: There are several prominent blood vessels in the anterior cranial fossa meningoma. Assessment/Plan 1. Also mental status secondary to a large enhancing mass along the midline of the frontal lobes. MRI (see above). MRA/MRV (see above). Patient does have extensive cerebral edema and is on Decadron per neurosurgery. Dr. Calabrese will be scheduling the patient for surgery on Wednesday. Continue neuro checks. Neurology consulted as well given the patient's seizure activity on admission. Patient has also been maintained on Keppra 1000 twice a day (Increased from 500mg given above EEG results. 2. Abnormal EKG with ST depressions- patient denies chest pain. Cardiac enzymes negative. ? Related to the patient's underlying cerebral pathology 3. Sinus bradycardia - stable. Asymptomatic. Cardio consulted. 4. Leukocytosis- Improved. Likely reactive secondary to steroids. No source of infection. Afebrile. 5. H/o harrison's palsy with left facial droop. Stable. DVT prophy: Lovenox Patient has a very poor prognosis given the extent of this mass and extensive cerebral edema. Patient is medically optimized for resection of the above cerebral mass. RCRI score 1; 0.9% risk of major cardiac event Participating with PT. VS,Fishbone, I+O VS, Fishbone, I+O Laboratory Tests 07/24/16 05:22 Red Blood Count 4.31, Mean Corpuscular Volume 91.4, Mean Corpuscular Hemoglobin 30.2, Mean Corpuscular Hemoglobin Concent 33.1, Red Cell Distribution Width 13.4 , Calcium Level 8.1 L, Aspartate Amino Transf (AST/SGOT) 12 L, Alanine Aminotransferase (ALT/SGPT) 26, Alkaline Phosphatase 95, Total Bilirubin 0.2, Total Protein 6.4, Albumin 2.6 L Vital Signs Date Time Temp Pulse Resp B/P (MAP) Pulse Ox O2 Delivery O2 Flow Rate FiO2 07/24/16 08:17 Room Air 07/24/16 07:59 97.7 48 18 109/67 (81) 97 I&O- Last 24 Hours up to 6 AM 07/24/16 06:00 Intake Total 4680 ml Output Total 1700 ml Balance 2980 ml STEFFI ELISE MD Jul 24, 2016 12:58
--- NOTE | 2016-07-24 19:47 | CR ---
DATE OF CONSULTATION: 07/24/2016 REFERRING PROVIDER: Dr. Hebert Perez. PRIMARY PHYSICIAN: None. NEUROLOGIST: Dr. Dorina Becker. NEUROSURGEON: Dr. Collin Calabrese. REASON FOR CONSULTATION: Abnormal electrocardiogram (EKG) preoperative. HISTORY OF PRESENT ILLNESS: A 56-year-old woman, very unfortunate, has been having migraine headaches on-and-off for the last two years, but more lately, came to the hospital on the recommendation of her mother and her because they had noted that recently she has developed some deterioration in her mental status and she was having more headaches. She has developed some loss in her memory both short and long-term memory. She also has been having problem finding words to express herself, and she has been falling. She has not seen a physician for a long time, and she has no primary physician outside the hospital. She came to the hospital on 07/20/2016, and she had a head CT that revealed extensive low-density changes in the frontal lobes with some extension to the temporal lobes and to the parietal lobes. Further workup including brain MRI revealed evidence consistent with a tumor that could be a meningioma with associated brain edema. There is no acute infarct or bleed. She also had MRA of the brain that revealed no aneurysm, but mild atherosclerotic disease. There was also a 2.6 cm cavernous right internal carotid artery aneurysm. Not mentioned above, while in the emergency room (ER), the patient had one episode of seizure and she was seen by neurology, started on Keppra and Decadron. The working differential diagnostic it seems has been metastatic brain tumor versus central nervous system lymphoma versus primary glioblastoma multiforme versus meningioma. The patient also was seen by neurosurgeon, Dr. Calabrese, and the plan is to proceed with surgery this coming Wednesday. When I saw Mrs. Petra Sifuentes on the floor, she was lying supine in bed in no acute distress at rest, and she denies any history of chest pain, shortness of breath, palpitations, pedal edema, orthopnea, syncope or near syncope. She denies hypertension, hyperlipidemia, diabetes mellitus. She is a former smoker and she had stopped many years ago. She denies any nausea, vomiting, diarrhea, melena or hematemesis. She has no cough or hemoptysis. She denies any focal manifestation. PAST MEDICAL HISTORY: Positive for Vieira's palsy at the age of 30; otherwise unremarkable. PAST SURGICAL HISTORY: Positive for Lasik surgery bilaterally in 2011, and she had minor surgery for an abnormal Pap smear about 20 years ago. FAMILY HISTORY: Positive for cancer in one of her brothers with multiple cancers, but she could not elaborate. She also has a family history positive for diabetes mellitus. Her mother is alive with hypertension. ADVANCE DIRECTIVES: Patient is FULL CODE. ALLERGIES: No known drug allergies. PHYSICAL EXAMINATION: The patient is alert and awake in no acute distress at rest, very pleasant, and her vital signs today reveal a blood pressure of 103/71, with a pulse of 64, respirations 18, and her maximum temperature was 98.8 degrees Fahrenheit with an oxygen saturation of 96-97% on room air. She has a positive fluid balance of 3.8 liters on 07/23/2016, and on 07/22, the fluid balance was 1.6 liters. Examination of the head is atraumatic. Deformity secondary to prior Vieira's palsy noted. Neck is supple. No jugular venous distention (JVD). No carotid bruits. Lungs were clear bilaterally on auscultation without any wheezing or crackles. The heart examination revealed normal S1, S2 without gallops. The point of maximum impulse (PMI) is not displaced. There is no rub. I could not appreciate any murmurs. Abdomen is unremarkable. Extremities reveal no pedal edema. Neurological examination is negative for focal deficit. LABORATORY DATA: CBC done today revealed a WBC of 11.6, hemoglobin 13.0, hematocrit 39.4, and platelets 238,000. BMP done today revealed a sodium of 140, potassium 3.6, chloride 108, CO2 23, BUN 14, creatinine 0.74, GFR greater than 60, fasting glucose 137 and calcium 8.1. Serum magnesium is 2.1. Liver enzymes reveal a total bilirubin of 0.2, AST 12, ALT 26, alkaline phosphatase 95, total protein 6.4, albumin 2.6. Serum troponin I was negative. Serum lactic acid on 07/20 was 1.3. Serum TSH on 07/20 was 0.41. Chest x-ray on 07/20/2016, revealed normal study, no cardiomegaly and no manifestation of heart failure or pleural effusion. Electrocardiogram done on admission 07/20/2016, revealed normal sinus rhythm with left axis deviation and nonspecific ST-T abnormalities noted mainly in the precordial leads. No prior electrocardiogram for comparison. Telemetry revealed episode of sinus bradycardia and the lowest reported was about 40 and 45 beats per minute. IMPRESSION: A 56-year-old female with no cardiac symptoms and no significant risk factors for coronary artery disease (CAD), came to the hospital with altered mental status and was found to have an intracranial mass. The immediate plan is to proceed with frontal craniotomy this coming Wednesday. She also had one episode of seizure while in the ER, and has been stable on Decadron and Keppra. She also had associated brain edema on the imaging study of the brain. EKG was abnormal with ST-T abnormalities, and that was probably most likely related to the intracranial process. It will be repeated and I will assess her left ventricular systolic function while in the hospital with an echocardiogram. She has no significant valvular heart disease noted on examination and I assume that most likely the (please verify) will be normal, but the EKG might be worse. She is most likely at low risk for this surgery based on her overall cardiac risk factors, and she may proceed as scheduled. Further recommendation will be given after reviewing her echocardiogram. There is no need for any cardiac medication at this present time, but fluid overload should be avoided and she will need deep venous thrombosis (DVT) prophylaxis. We also should keep her on telemetry. I will ask Dr. Coats to see her for me over the weekend after reviewing her echocardiogram, and he will provide further recommendations if needed. It was a pleasure to participate in the care of Mrs. Petra Sifuentes for her underlying cardiac condition. Please do not hesitate to call if any questions.
[2016-07-24] MEDS: PANTOPRAZOLE 40MG INJ (PROTONIX) (C9113) IV SCH (20:37)
[2016-07-25] VITALS (7 sets, daily range): BP systolic 116–131; BP diastolic 68–90; PULSE 48–62
[2016-07-25] MEDS: dexameTHASONE 4 MG/ML 1ML VIAL (J1100) IV SCH ×5 (00:08→23:46)
[2016-07-25 05:46] LABS: DIFF SLIDE NUMBER 10; MEAN CORPUSCULAR HEMOGLOBIN 30.8 pg (27.0-33.0); MEAN CORPUSCULAR VOLUME 90.7 fl (80.0-96.0); PLATELET COUNT, AUTOMATED 267 k/mm3 (150-450); RED CELL DISTRIBUTION WIDTH 13.4 % (11.5-14.5); WHITE BLOOD COUNT 11.4 K/mm3 (4.0-10.0)
[2016-07-25 06:20] LABS: ALBUMIN 2.7 GM/DL (3.2-5.2); ALBUMIN/GLOBULIN RATIO 0.69 (1.00-1.93); ALKALINE PHOSPHATASE 85 U/L (45-117); ALT/SGPT 33 U/L (12-78); ANION GAP 9 MEQ/L (8-16); AST/SGOT 15 U/L (15-37); BILIRUBIN,TOTAL 0.2 MG/DL (0.2-1.0); BLOOD UREA NITROGEN 14 MG/DL (7-18); CALCIUM LEVEL 8.2 MG/DL (8.5-10.1); CARBON DIOXIDE LEVEL 23 MEQ/L (21-32); CHLORIDE LEVEL 104 MEQ/L (98-107); CREATININE FOR GFR 0.69 MG/DL (0.55-1.02); GLOMERULAR FILTRATION RATE > 60.0 (>51); GLUCOSE, FASTING 138 MG/DL (70-105); MAGNESIUM LEVEL 2.4 MG/DL (1.8-2.4); POTASSIUM SERUM 3.9 MEQ/L (3.5-5.1); SODIUM LEVEL 136 MEQ/L (136-145); TOTAL PROTEIN 6.6 GM/DL (6.4-8.2)
[2016-07-25] MEDS: SLF 3 ML SYR IV SCH ×3 (06:27→20:41)
[2016-07-25 06:55] LABS: BANDS 1 % (< 11)
[2016-07-25 06:56] LABS: ANISOCYTOSIS 1+
[2016-07-25] MEDS: levETIRAcetam 250MG TABLET (KEPPRA) PO SCH ×2 (09:14→20:40)
[2016-07-25] MEDS: ENOXAPARIN 40 MG/0.4 ML SYRINGE (J1650) SC SCH (09:16)
--- NOTE | 2016-07-25 12:10 | IPNPDOC ---
Text Note Date of Service The patient was seen on 07/25/16. NOTE Subjective: Feels well today. OOB and ambulating. No deficits. Objective: Vitals: (see below) General: No acute distress, laying comfortably in bed. HEENT: Moist mucous membranes. Neck: No JVD or lymphadenopathy Cardiac: RRR, No murmurs Pulm: Clear to auscultation b/l. No wheezing, rhonchi Abd: NT/ND + BS Ext: No edema or cyanosis Neuro: Strength 5/5 BUE and BLE. AAOx3 CN 2-12 intact. H/o harrison's palsy with left facial droop. F to N intact Negative Babinki. DTR 2-3+ throughout Labs (see below) Images: MRI Brain 07/20/16 There is a large enhancing mass along the midline of the frontal lobes, measuring 4.5 x 4.3 x 2.7 cm. This causes splaying of the frontal horns of the lateral ventricles bilaterally. Severe surrounding edema and mass effect is noted, Predominately in the subcortical white matter. Effacement of the sulci is noted throughout the frontal lobes bilaterally. There is no extra-axial fluid collection. The other midline intracranial structures do not demonstrate any gross abnormalities. The cervical cranial junction is intact. The orbits are unremarkable. The visualized paranasal sinuses and mastoid air cells are clear. The osseous structures and superficial soft tissues are unremarkable. The vascular structures demonstrate appropriate flow voids. Impression: Large enchancing mass along the midline of the frontal lobes, considered neoplasm until proven otherwise. Most common diagnoses will be glioblastoma multiforme. Extensive surrounding mass effect and edema throughout the frontal lobes bilaterally are noted, causing mass effect and displacing of the frontal horns of the lateral ventricles bilaterally. No discrete evidence of acute hemorrhage or infarct was identified. MRA/MRV 07/21/16 There is no aneurysm or arteriovenous malformation. Mild atherosclerotic disease involves the cavernous internal carotid arteries. Major intracranial vessels are patent. The vertebral arteries are equal in size. There are two prominent external carotid artery branches that appear to supply the patient's anterior cranial fossa meningoma. IMPRESSION: 1. There is no aneurysm or arteriovenous malformation. 2. Atherosclerotic disease as described above. 3. There are two prominent external carotid artery branches that appear to supply the anterior cranial fossa. Meningoma. MRA BRAIN WITHOUT AND WITH CONTRAST: HISTORY: Meningeoma. Unenhanced 2D time of flight and contrast enhanced MR venography were performed. There are no filling defects in the deep venous system or dural sinuses. The right transverse and sigmoid sinuses are hypoplastic. There is stenosis of the distal right transverse sinus. A large anterior cranial fossa meningioma is present. There is intense homogenous enhancement with contrast. Several prominent blood vessels are present in the meningioma. There are no definite draining vessels overlying the meningioma. IMPRESSION: 1. There is no sinus thrombosis. 2. There is stenosis of the distal right transverse sinus. 3. There are several prominent vascular structures in the anterior cranial fossa meningoma. IMPRESSION: There are several prominent blood vessels in the anterior cranial fossa meningoma. Assessment/Plan 1. Also mental status secondary to a large enhancing mass along the midline of the frontal lobes. MRI (see above). MRA/MRV (see above). Patient does have extensive cerebral edema and is on Decadron per neurosurgery. Dr. Calabrese will be scheduling the patient for surgery on Wednesday. Continue neuro checks. Neurology consulted as well given the patient's seizure activity on admission. Patient has also been maintained on Keppra 1000 twice a day (Increased from 500mg given above EEG results. 2. Abnormal EKG with ST depressions- patient denies chest pain. Cardiac enzymes negative. ? Related to the patient's underlying cerebral pathology 3. Sinus bradycardia - stable. Asymptomatic. Echo pending. Cardio on board. 4. Leukocytosis- Improved. Likely reactive secondary to steroids. No source of infection. Afebrile. 5. H/o harrison's palsy with left facial droop. Stable. DVT prophy: Lovenox Patient has a very poor prognosis given the extent of this mass and extensive cerebral edema. Patient is medically optimized for resection of the above cerebral mass. RCRI score 1; 0.9% risk of major cardiac event Participating with PT. VS,Fishbone, I+O VS, Fishbone, I+O Laboratory Tests 07/25/16 05:05 Red Blood Count 4.69, Mean Corpuscular Volume 90.7, Mean Corpuscular Hemoglobin 30.8, Mean Corpuscular Hemoglobin Concent 34.0, Red Cell Distribution Width 13.4 , Calcium Level 8.2 L, Aspartate Amino Transf (AST/SGOT) 15, Alanine Aminotransferase (ALT/SGPT) 33, Alkaline Phosphatase 85, Total Bilirubin 0.2, Total Protein 6.6, Albumin 2.7 L Vital Signs Date Time Temp Pulse Resp B/P (MAP) Pulse Ox O2 Delivery O2 Flow Rate FiO2 07/25/16 08:00 97.9 72 19 131/90 (104) 98 Room Air I&O- Last 24 Hours up to 6 AM 07/25/16 06:00 Intake Total 1180 ml Output Total 1000 ml Balance 180 ml STEFFI ELISE MD Jul 25, 2016 12:10
[2016-07-25] MEDS: PANTOPRAZOLE 40MG INJ (PROTONIX) (C9113) IV SCH (20:40)
[2016-07-26] VITALS: BP 106/67
[2016-07-26 04:00] VITALS: BP 115/70
[2016-07-26 05:23] LABS: DIFF SLIDE NUMBER 6; MEAN CORPUSCULAR HEMOGLOBIN 30.5 pg (27.0-33.0); MEAN CORPUSCULAR HGB CONC 33.8 g/dl (32.0-36.5); MEAN CORPUSCULAR VOLUME 90.2 fl (80.0-96.0); PLATELET COUNT, AUTOMATED 299 k/mm3 (150-450); RED CELL DISTRIBUTION WIDTH 13.4 % (11.5-14.5); WHITE BLOOD COUNT 14.3 K/mm3 (4.0-10.0)
[2016-07-26] MEDS: dexameTHASONE 4 MG/ML 1ML VIAL (J1100) IV SCH ×3 (05:28→17:24)
[2016-07-26] MEDS: SLF 3 ML SYR IV SCH ×3 (05:28→20:41)
[2016-07-26 05:35] LABS: ALBUMIN 2.8 GM/DL (3.2-5.2); ALBUMIN/GLOBULIN RATIO 0.72 (1.00-1.93); ALKALINE PHOSPHATASE 85 U/L (45-117); ALT/SGPT 43 U/L (12-78); ANION GAP 7 MEQ/L (8-16); AST/SGOT 21 U/L (15-37); BILIRUBIN,TOTAL 0.3 MG/DL (0.2-1.0); BLOOD UREA NITROGEN 25 MG/DL (7-18); CALCIUM LEVEL 8.3 MG/DL (8.5-10.1); CARBON DIOXIDE LEVEL 25 MEQ/L (21-32); CHLORIDE LEVEL 105 MEQ/L (98-107); CREATININE FOR GFR 0.79 MG/DL (0.55-1.02); GLOMERULAR FILTRATION RATE > 60.0 (>51); GLUCOSE, FASTING 125 MG/DL (70-105); MAGNESIUM LEVEL 2.5 MG/DL (1.8-2.4); POTASSIUM SERUM 4.1 MEQ/L (3.5-5.1); SODIUM LEVEL 137 MEQ/L (136-145); TOTAL PROTEIN 6.7 GM/DL (6.4-8.2)
[2016-07-26 08:00] VITALS: BP 108/65
[2016-07-26] MEDS: levETIRAcetam 250MG TABLET (KEPPRA) PO SCH ×2 (08:10→20:41)
[2016-07-26] MEDS: ENOXAPARIN 40 MG/0.4 ML SYRINGE (J1650) SC SCH (08:11)
[2016-07-26 12:00] VITALS: BP 110/69
--- NOTE | 2016-07-26 14:00 | REP ---
MR BRAIN WITH CONTRAST: HISTORY: Meningioma. CONTRAST: ProHance 14 mL. Contrast-enhanced MR of the brain was performed for use with the Stealth navigation system. COMPARISON: 07/20/2016 A meningioma with intense homogeneous enhancement is present in the anterior cranial fossa. The meningioma appears to arise from the cribriform plate. The meningioma measures 4.5 cm in width. There is mass effect on the anterior horns of the lateral ventricles without midline shift. IMPRESSION: Contrast-enhanced MR of the brain was performed for use with the Stealth navigation system. Signed by Augusto Friedman MD 07/26/2016 02:03 P
--- NOTE | 2016-07-26 14:25 | IPNPDOC ---
Text Note Date of Service The patient was seen on 07/26/16. NOTE Subjective: Denies any complaints. Awaiting surgery scheduled for tomorrow. OOB and ambulating. No deficits. Objective: Vitals: (see below) General: No acute distress, laying comfortably in bed. HEENT: Moist mucous membranes. Neck: No JVD or lymphadenopathy Cardiac: RRR, No murmurs Pulm: Clear to auscultation b/l. No wheezing, rhonchi Abd: NT/ND + BS Ext: No edema or cyanosis Neuro: Strength 5/5 BUE and BLE. AAOx3 CN 2-12 intact. H/o harrison's palsy with left facial droop. F to N intact Negative Babinki. DTR 2-3+ throughout Labs (see below) Images: MRI Brain 07/20/16 There is a large enhancing mass along the midline of the frontal lobes, measuring 4.5 x 4.3 x 2.7 cm. This causes splaying of the frontal horns of the lateral ventricles bilaterally. Severe surrounding edema and mass effect is noted, Predominately in the subcortical white matter. Effacement of the sulci is noted throughout the frontal lobes bilaterally. There is no extra-axial fluid collection. The other midline intracranial structures do not demonstrate any gross abnormalities. The cervical cranial junction is intact. The orbits are unremarkable. The visualized paranasal sinuses and mastoid air cells are clear. The osseous structures and superficial soft tissues are unremarkable. The vascular structures demonstrate appropriate flow voids. Impression: Large enchancing mass along the midline of the frontal lobes, considered neoplasm until proven otherwise. Most common diagnoses will be glioblastoma multiforme. Extensive surrounding mass effect and edema throughout the frontal lobes bilaterally are noted, causing mass effect and displacing of the frontal horns of the lateral ventricles bilaterally. No discrete evidence of acute hemorrhage or infarct was identified. MRA/MRV 07/21/16 There is no aneurysm or arteriovenous malformation. Mild atherosclerotic disease involves the cavernous internal carotid arteries. Major intracranial vessels are patent. The vertebral arteries are equal in size. There are two prominent external carotid artery branches that appear to supply the patient's anterior cranial fossa meningoma. IMPRESSION: 1. There is no aneurysm or arteriovenous malformation. 2. Atherosclerotic disease as described above. 3. There are two prominent external carotid artery branches that appear to supply the anterior cranial fossa. Meningoma. MRA BRAIN WITHOUT AND WITH CONTRAST: HISTORY: Meningeoma. Unenhanced 2D time of flight and contrast enhanced MR venography were performed. There are no filling defects in the deep venous system or dural sinuses. The right transverse and sigmoid sinuses are hypoplastic. There is stenosis of the distal right transverse sinus. A large anterior cranial fossa meningioma is present. There is intense homogenous enhancement with contrast. Several prominent blood vessels are present in the meningioma. There are no definite draining vessels overlying the meningioma. IMPRESSION: 1. There is no sinus thrombosis. 2. There is stenosis of the distal right transverse sinus. 3. There are several prominent vascular structures in the anterior cranial fossa meningoma. IMPRESSION: There are several prominent blood vessels in the anterior cranial fossa meningoma. Echo 07/21/16 CONCLUSIONS: 1. Normal echocardiogram Doppler. 2. Normal left ventricle internal dimensions and wall thickness. Normal LV wall motion and wall thickening. No regional wall motion abnormalities. Normal LV systolic function. LVEF of 65% by visual estimate. Normal LV diastolic function. Assessment/Plan 1. Tonic/clonic seizure - Altered mental status secondary to a large enhancing mass along the midline of the frontal lobes. MRI (see above). MRA/MRV (see above ). Patient does have extensive cerebral edema and is on Decadron per neurosurgery. Dr. Calabrese will be scheduling the patient for surgery on Wednesday. Continue neuro checks. Neurology consulted as well given the patient's seizure activity on admission. Patient has also been maintained on Keppra 1000 twice a day (Increased from 500mg given above EEG results. 2. Abnormal EKG with ST depressions- patient denies chest pain. Cardiac enzymes negative. ? Related to the patient's underlying cerebral pathology 3. Sinus bradycardia - stable. Asymptomatic. Echo (see above). Cardio on board. 4. Leukocytosis- Improved. Likely reactive secondary to steroids. No source of infection. Afebrile. 5. H/o harrison's palsy with left facial droop. Stable. DVT prophy: Lovenox Patient has a very poor prognosis given the extent of this mass and extensive cerebral edema. Patient is medically optimized for resection of the above cerebral mass. RCRI score 1; 0.9% risk of major cardiac event Participating with PT. VS,Fishbone, I+O VS, Fishbone, I+O Laboratory Tests 07/26/16 04:36 Red Blood Count 5.14, Mean Corpuscular Volume 90.2, Mean Corpuscular Hemoglobin 30.5, Mean Corpuscular Hemoglobin Concent 33.8, Red Cell Distribution Width 13.4 , Calcium Level 8.3 L, Aspartate Amino Transf (AST/SGOT) 21, Alanine Aminotransferase (ALT/SGPT) 43, Alkaline Phosphatase 85, Total Bilirubin 0.3, Total Protein 6.7, Albumin 2.8 L Vital Signs Date Time Temp Pulse Resp B/P (MAP) Pulse Ox O2 Delivery O2 Flow Rate FiO2 07/26/16 12:00 97.7 61 20 110/69 (83) 95 Room Air I&O- Last 24 Hours up to 6 AM 07/26/16 06:00 Intake Total 640 ml Output Total 602 ml Balance 38 ml STEFFI ELISE MD Jul 26, 2016 14:25
[2016-07-26 16:00] VITALS: BP 125/69
--- NOTE | 2016-07-26 16:33 | ECGEPIP ---
Stationary ECG Study [facility] Test Date: 2016-07-25 Pat Name: RASTA SIMEON Department: Room: [place] [address] Gender: F Special Education Administrator: BLANQUITA : 1960 Requested By: MANA ARZATE Order Number: [id number] Reading MD: Vega Coats Measurements Intervals [place] Rate: 50 P: 35 MT: 156 QRS: 20 QRSD: 88 T: 64 QT: 452 QTc: 413 Interpretive Statements SINUS BRADYCARDIA MODERATE T-WAVE ABNORMALITY, CONSIDER ANTERIOR ISCHEMIA SIMILAR TO 07/20/16 Electronically Signed On 07-26-2016 16:32:58 EDT by Vega Coats
[2016-07-26 20:00] VITALS: BP 112/71
[2016-07-26] MEDS: PANTOPRAZOLE 40MG INJ (PROTONIX) (C9113) IV SCH (20:41)
[2016-07-27] VITALS (7 sets, daily range): BP systolic 101–121; BP diastolic 61–75
[2016-07-27] MEDS: dexameTHASONE 4 MG/ML 1ML VIAL (J1100) IV SCH ×2 (00:12→05:58)
[2016-07-27 05:38] LABS: DIFF SLIDE NUMBER 3; MEAN CORPUSCULAR HEMOGLOBIN 30.5 pg (27.0-33.0); MEAN CORPUSCULAR HGB CONC 33.7 g/dl (32.0-36.5); MEAN CORPUSCULAR VOLUME 90.4 fl (80.0-96.0); PLATELET COUNT, AUTOMATED 299 k/mm3 (150-450); RED CELL DISTRIBUTION WIDTH 13.3 % (11.5-14.5); WHITE BLOOD COUNT 15.9 K/mm3 (4.0-10.0)
[2016-07-27 05:52] LABS: ALBUMIN 2.7 GM/DL (3.2-5.2); ALBUMIN/GLOBULIN RATIO 0.69 (1.00-1.93); ALKALINE PHOSPHATASE 84 U/L (45-117); ALT/SGPT 53 U/L (12-78); ANION GAP 9 MEQ/L (8-16); AST/SGOT 20 U/L (15-37); BILIRUBIN,TOTAL 0.3 MG/DL (0.2-1.0); BLOOD UREA NITROGEN 22 MG/DL (7-18); CALCIUM LEVEL 8.1 MG/DL (8.5-10.1); CARBON DIOXIDE LEVEL 24 MEQ/L (21-32); CHLORIDE LEVEL 105 MEQ/L (98-107); CREATININE FOR GFR 0.73 MG/DL (0.55-1.02); GLOMERULAR FILTRATION RATE > 60.0 (>51); GLUCOSE, FASTING 146 MG/DL (70-105); MAGNESIUM LEVEL 2.4 MG/DL (1.8-2.4); POTASSIUM SERUM 3.9 MEQ/L (3.5-5.1); SODIUM LEVEL 138 MEQ/L (136-145); TOTAL PROTEIN 6.6 GM/DL (6.4-8.2)
[2016-07-27] MEDS: SLF 3 ML SYR IV SCH (05:58)
[2016-07-27] MEDS ORDERED: THROMBIN SOLN 20,000 UNITS KIT As Ordered ONE ×2 (09:27→14:26)
[2016-07-27] MEDS ORDERED: LIDOCAINE W/EPINEPHRINE 1% 20ML VIAL As Ordered ONE (09:27)
[2016-07-27] MEDS ORDERED: BACITRACIN PWD 50,000 UNITS VIAL As Ordered ONE (09:30)
[2016-07-27] MEDS ORDERED: ceFAZolin 2 GM/D5W 50 ML IV BAG (J0690) As Ordered ONE ×2 (10:01→17:06)
[2016-07-27 11:18] LABS: INR 0.98
[2016-07-27] MEDS ORDERED: GLYCOPYRROLATE INJ 0.2 MG/ML 2 ML VIAL As Ordered ONE (12:49)
[2016-07-27] MEDS ORDERED: fentaNYL 250 MCG/5 ML INJECTION (J3010) As Ordered ONE (12:49)
[2016-07-27] MEDS ORDERED: PHENYLephrine HCL 500 MCG/5 ML (100MCG/ML) SYRINGE (J2370) As Ordered ONE (12:49)
[2016-07-27] MEDS ORDERED: ROCURONIUM BROMIDE 50 MG/5 ML VIAL As Ordered ONE (12:49)
[2016-07-27] MEDS ORDERED: PHENYLEPHRINE INJ 10MG/ML VIAL (J2370) As Ordered ONE ×2 (12:49→16:06)
[2016-07-27] MEDS ORDERED: LIDOCAINE 2% INJ 100 MG/5 ML SDV (FOR ANES.) As Ordered ONE (12:49)
[2016-07-27] MEDS ORDERED: MIDAZOLAM INJ 2 MG/2 ML VIAL (J2250) As Ordered ONE (12:49)
[2016-07-27] MEDS ORDERED: ePHEDrine SULFATE 25 MG/5 ML(5MG/ML) SYRINGE As Ordered ONE (12:49)
[2016-07-27] MEDS ORDERED: PROPOFOL 200 MG/20 ML VIAL As Ordered ONE (12:49)
[2016-07-27] MEDS ORDERED: REMIFENTANIL 1MG 3ML VIAL As Ordered ONE ×2 (12:49→16:06)
[2016-07-27 13:31] LABS: ABG BASE EXCESS -3.4 (-2.0-2.0); ABG DEVICE MECHAN. VENT; ABG HCO3 20.7 MEQ/L (22.0-26.0); ABG PARTIAL PRESSURE CO2 35.1 mmHg (35.0-45.0); ABG PARTIAL PRESSURE O2 218.5 mmHg (75.0-100.0); ABG STANDARD HCO3 21.7 MEQ/L (22.0-26.0); ABG TOTAL CO2 21.8 MEQ/L (22.0-29.0); ABG pH (ARTERIAL) 7.389 UNITS (7.350-7.450)
--- NOTE | 2016-07-27 13:45 | IPNPDOC ---
Text Note Date of Service The patient was seen on 07/27/16. NOTE Subjective: Pt seen in PACU prior to surgery. Feeling anxious about the OR. No new deficits or complaints. Objective: Vitals: (see below) General: No acute distress, laying comfortably in bed. HEENT: Moist mucous membranes. Neck: No JVD or lymphadenopathy Cardiac: RRR, No murmurs Pulm: Clear to auscultation b/l. No wheezing, rhonchi Abd: NT/ND + BS Ext: No edema or cyanosis Neuro: Strength 5/5 BUE and BLE. AAOx3 CN 2-12 intact. H/o harrison's palsy with left facial droop. F to N intact Negative Babinki. DTR 2-3+ throughout Labs (see below) Images: MRI Brain 07/20/16 There is a large enhancing mass along the midline of the frontal lobes, measuring 4.5 x 4.3 x 2.7 cm. This causes splaying of the frontal horns of the lateral ventricles bilaterally. Severe surrounding edema and mass effect is noted, Predominately in the subcortical white matter. Effacement of the sulci is noted throughout the frontal lobes bilaterally. There is no extra-axial fluid collection. The other midline intracranial structures do not demonstrate any gross abnormalities. The cervical cranial junction is intact. The orbits are unremarkable. The visualized paranasal sinuses and mastoid air cells are clear. The osseous structures and superficial soft tissues are unremarkable. The vascular structures demonstrate appropriate flow voids. Impression: Large enchancing mass along the midline of the frontal lobes, considered neoplasm until proven otherwise. Most common diagnoses will be glioblastoma multiforme. Extensive surrounding mass effect and edema throughout the frontal lobes bilaterally are noted, causing mass effect and displacing of the frontal horns of the lateral ventricles bilaterally. No discrete evidence of acute hemorrhage or infarct was identified. MRA/MRV 07/21/16 There is no aneurysm or arteriovenous malformation. Mild atherosclerotic disease involves the cavernous internal carotid arteries. Major intracranial vessels are patent. The vertebral arteries are equal in size. There are two prominent external carotid artery branches that appear to supply the patient's anterior cranial fossa meningoma. IMPRESSION: 1. There is no aneurysm or arteriovenous malformation. 2. Atherosclerotic disease as described above. 3. There are two prominent external carotid artery branches that appear to supply the anterior cranial fossa. Meningoma. MRA BRAIN WITHOUT AND WITH CONTRAST: HISTORY: Meningeoma. Unenhanced 2D time of flight and contrast enhanced MR venography were performed. There are no filling defects in the deep venous system or dural sinuses. The right transverse and sigmoid sinuses are hypoplastic. There is stenosis of the distal right transverse sinus. A large anterior cranial fossa meningioma is present. There is intense homogenous enhancement with contrast. Several prominent blood vessels are present in the meningioma. There are no definite draining vessels overlying the meningioma. IMPRESSION: 1. There is no sinus thrombosis. 2. There is stenosis of the distal right transverse sinus. 3. There are several prominent vascular structures in the anterior cranial fossa meningoma. IMPRESSION: There are several prominent blood vessels in the anterior cranial fossa meningoma. Echo 07/21/16 CONCLUSIONS: 1. Normal echocardiogram Doppler. 2. Normal left ventricle internal dimensions and wall thickness. Normal LV wall motion and wall thickening. No regional wall motion abnormalities. Normal LV systolic function. LVEF of 65% by visual estimate. Normal LV diastolic function. Assessment/Plan 1. Tonic/clonic seizure - Altered mental status secondary to a large enhancing mass along the midline of the frontal lobes. MRI (see above). MRA/MRV (see above ). Patient does have extensive cerebral edema and is on Decadron per neurosurgery. Dr. Calabrese will be scheduling the patient for surgery on Wednesday. Continue neuro checks. Neurology consulted as well given the patient's seizure activity on admission. Patient has also been maintained on Keppra 1000 twice a day (Increased from 500mg given above EEG results. 2. Abnormal EKG with ST depressions- patient denies chest pain. Cardiac enzymes negative. ? Related to the patient's underlying cerebral pathology 3. Sinus bradycardia - stable. Asymptomatic. Echo (see above). Cardio on board. 4. Leukocytosis- Likely reactive secondary to steroids. No source of infection. Afebrile. 5. H/o harrison's palsy with left facial droop. Stable. DVT prophy: Lovenox d/c. Will need to be restarted when ok with neurosurgery. Patient has a very poor prognosis given the extent of this mass and extensive cerebral edema. Patient is medically optimized for resection of the above cerebral mass. RCRI score 1; 0.9% risk of major cardiac event VS,Fishbone, I+O VS, Fishbone, I+O Laboratory Tests 07/27/16 04:08 Red Blood Count 5.01, Mean Corpuscular Volume 90.4, Mean Corpuscular Hemoglobin 30.5, Mean Corpuscular Hemoglobin Concent 33.7, Red Cell Distribution Width 13.3 , Calcium Level 8.1 L, Aspartate Amino Transf (AST/SGOT) 20, Alanine Aminotransferase (ALT/SGPT) 53, Alkaline Phosphatase 84, Total Bilirubin 0.3, Total Protein 6.6, Albumin 2.7 L 07/27/16 10:08 Vital Signs Date Time Temp Pulse Resp B/P (MAP) Pulse Ox O2 Delivery O2 Flow Rate FiO2 07/27/16 11:45 60 101/66 (78) 96 07/27/16 08:19 Room Air 07/27/16 08:00 97.4 20 I&O- Last 24 Hours up to 6 AM 07/27/16 06:00 Intake Total 1260 ml Output Total 400 ml Balance 860 ml STEFFI ELISE MD Jul 27, 2016 13:45
[2016-07-27] MEDS ORDERED: MANNITOL 25% 12.5 GM/50 ML VIAL (J2150) As Ordered ONE ×2 (14:18→14:19)
[2016-07-27] MEDS ORDERED: DESFLURANE 240 ML INHALANT As Ordered ONE (15:06)
[2016-07-27] MEDS ORDERED: dexameTHASONE 4 MG/ML 1ML VIAL (J1100) As Ordered ONE (17:10)
[2016-07-27] MEDS ORDERED: HYDROmorphone HCL 2 MG/ML 1ML VIAL (J1170) As Ordered ONE (18:26)
[2016-07-27] MEDS ORDERED: ONDANSETRON 4MG/2ML VIAL (J2405) As Ordered ONE (19:29)
[2016-07-27] MEDS ORDERED: LR 1,000 ML IV SCH (21:00)
[2016-07-27] MEDS ORDERED: fentaNYL 100 MCG/2 ML INJECTION (J3010) IV PRN (21:00)
[2016-07-27] MEDS ORDERED: HYDROmorphone HCL 1 MG/ML SYRINGE (J1170) IV PRN (21:00)
[2016-07-27] MEDS ORDERED: ONDANSETRON 4MG/2ML VIAL (J2405) IV PRN (21:00)
[2016-07-27] MEDS ORDERED: METOCLOPRAMIDE INJ 10MG/2ML VIAL (J2765) IV PRN (21:00)
[2016-07-27] MEDS: KCL 20MEQ IN D5/0.45NS 1000ML 1,000 ML IV SCH (22:10)
--- NOTE | 2016-07-27 23:52 | RO ---
DATE OF PROCEDURE: 07/27/2016 PREPROCEDURE DIAGNOSIS: Huge anterior basal skull meningioma. 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 PROCEDURE: Right frontal craniotomy with excision of large cribriform plate meningioma extending bilaterally, duraplasty, cranioplasty and paracentesis with assistance of CO2 laser and Ushiitron ultrasonic surgical aspirator (CUSA). SURGEON: Dr. Collin Calabrese ASSISTANT GENERAL MANAGER: None. ANESTHESIA: General. FINDINGS: Please see my recent hospital records for detailed preoperative evaluation and discussion. The patient presented with new onset of seizures. Workup showed massive frontal tumor starting from dorsum sellae or cribriform plate displacing both frontal lobes and causing severe vasogenic edema. The patient developed bilateral hemiparesis with confusion and lethargy. She responded to Decadron. The patient, her , and family were aware of all options, risk, scope, expected outcome, sequelae, and complications of proposed surgery with biopsy, debulking or removal. The patient and family were aware of the scope, the risk and they understood the risk of surgery includes , paralysis, persistent vegetative state, loss of smell, loss of all vital bodily functions, status epilepticus, worsening of seizures, paralysis, pulmonary embolus (PE), deep venous thrombosis (DVT), myocardial infarction (MS), cerebrovascular accident, and/or any catastrophic sequelae. The patient and her family wished to proceed with surgery. DESCRIPTION OF PROCEDURE: After informed consent and after clearance of internal medicine and cardiology services, she was taken to the operating room. Once in the operating room, general endotracheal anesthesia was given by the anesthesia service. The area of surgery was prepped and draped in the usual sterile fashion after positioning her head in a three-point skeletal fixation using Diaz headrest. After adequate prep and drape, a skin incision was given, starting just several centimeters above the zygoma and carried behind her hairline posteriorly and superiorly and then curved anteriorly toward the midline. Scalp flap was reflected inferiorly. Cut edges of blood vessels were coagulated with bipolar cautery and Matthew clips were applied and wound flap was held apart with the help of skin hooks. A bur hole was created just above the zygomatic process of the frontal bone and the second one was made medially at the orbital ridge, a third bur hole was made paramedially in the anterior frontal region and a fourth bur hole was created on the superior temporal line and they were connected. The dura was densely adherent or imperceptible with the skull and the dural defect. At this time, the brain was markedly swollen and expressed out of the skull vault by several centimeters. Mannitol was given and the interhemispheric cerebrospinal fluid (CSF) was drained and that brought the brain down enough to slightly retract it. The tumor was identified near the pedro edd and over the cribriform plate as well as the dorsum sellae. A cleavage was created between the brain and the tumor, which appeared quite vascular. The periphery of the tumor capsule was coagulated with bipolar cautery in order to devascularize the tumor. The process was carried across the midline into the left, into the falx, which was coagulated and excised for a few centimeters to gain more visual access on the left side. At this time, the tumor was debulked using CO2 laser as well as CUSA, and eventually the capsule of the tumor was removed. Hemostasis was checked and secured. Blood loss was negligible, maybe 70 mL. The patient tolerated the procedure well. At the time of this dictation in the recovery room, the patient was awake and alert, oriented times three and denied any symptoms, and she was moving all limbs. Operative findings were discussed with the patient's family in the waiting room.
[2016-07-28] VITALS (30 sets, daily range): BP systolic 115–167; BP diastolic 65–104
[2016-07-28] MEDS ORDERED: dexameTHASONE 4 MG/ML 1ML VIAL (J1100) IV SCH
[2016-07-28] MEDS: dexameTHASONE 20 MG/5 ML VIAL (J1100) IV SCH ×4 (01:19→17:31)
[2016-07-28] MEDS: ceFAZolin SOD 1 GM in D5W MINI-BAG PLUS 50 ML IV SCH ×4 (01:20→20:17)
[2016-07-28] MEDS: levETIRAcetam INJection 500 MG in D5W MINI-BAG PLUS 100 ML IV SCH ×2 (01:20→12:09)
[2016-07-28] MEDS ORDERED: ONDANSETRON 4MG/2ML VIAL (J2405) IV PRN (01:45)
[2016-07-28] MEDS ORDERED: ceFAZolin 1GM INJ (J0690) IV SCH (02:00)
[2016-07-28 05:45] LABS: MEAN CORPUSCULAR HEMOGLOBIN 30.7 pg (27.0-33.0); MEAN CORPUSCULAR HGB CONC 33.6 g/dl (32.0-36.5); MEAN CORPUSCULAR VOLUME 91.4 fl (80.0-96.0); RED CELL DISTRIBUTION WIDTH 13.4 % (11.5-14.5); WHITE BLOOD COUNT 27.6 K/mm3 (4.0-10.0)
[2016-07-28 05:51] LABS: INR 1.08
[2016-07-28 06:07] LABS: ANION GAP 4 MEQ/L (8-16); BLOOD UREA NITROGEN 18 MG/DL (7-18); CALCIUM LEVEL 8.3 MG/DL (8.5-10.1); CARBON DIOXIDE LEVEL 31 MEQ/L (21-32); CHLORIDE LEVEL 101 MEQ/L (98-107); CREATININE FOR GFR 0.79 MG/DL (0.55-1.02); GLOMERULAR FILTRATION RATE > 60.0 (>51); GLUCOSE, FASTING 158 MG/DL (70-105); POTASSIUM SERUM 4.2 MEQ/L (3.5-5.1); SODIUM LEVEL 136 MEQ/L (136-145)
[2016-07-28] MEDS: KCL 20MEQ IN D5/0.45NS 1000ML 1,000 ML IV SCH (07:19)
--- NOTE | 2016-07-28 09:20 | REP ---
CT HEAD WITHOUT CONTRAST: HISTORY: Meningoma. COMPARISON: 07/27/2016. The patient is status post right frontal craniotomy. The patient is status post resection of a cribriform plate meningoma. Decreased attentuation is present in left frontal lobes consistent with edema. A small amount of hemorrhage and pneumocephalus are present. There is mass effect with partial effacement of the anterior horns of the lateral ventricles and effacement of the suprasellar and perimesencephalic cisterns and third ventricle. There is no hydrocephalus. A small subdural fluid collection 2 mm in width is present over the right frontal lobe. The visualized sinuses are clear. IMPRESSION: 1. The patient is status post resection of a cribriform plate meningoma. Edema, hemorrhage, and pneumocephalus are present. There is mass effect with partial effacement of the anterior horns of the lateral ventricles, third ventricle, suprasellar and perimesencephalic cisterns. 2. Small 2 mm right frontal lobe subdural hematoma. Signed by Augusto Friedman MD 07/28/2016 09:43 A
[2016-07-28] MEDS: levETIRAcetam INJection 1,000 MG in D5W 100 ML IV SCH (16:48)
--- NOTE | 2016-07-28 16:48 | IPN ---
DATE: 07/28/2016 SUBJECTIVE: The patient is seen and examined in the room today. The patient is nonverbal. The patient is able to follow simple commands. Per nursing staff, the patient had a change in mental status early in the morning, approximately 7:00 a.m. Otherwise, no overnight events reported. OBJECTIVE: VITAL SIGNS: Temperature is 100, pulse is 94, respirations 22, blood pressure is 131/80, pulse oximetry is 97% with 2 liters nasal cannula. GENERAL: The patient is awake, alert, and nonverbal. Follows commands. HEENT: Surgical scar in the frontal lobe. No active bleeding. No active discharge noted. CARDIOVASCULAR: Positive S1, S2. Regular rate. LUNGS: Clear to auscultation bilaterally. ABDOMEN: Soft, nontender, nondistended. Bowel sounds present. No rebound. No guarding. EXTREMITIES: No edema. No sign of cyanosis. NEUROLOGIC: Muscle strength is 5/5 in upper and lower extremities. Sensation to fine touch is grossly intact. LABORATORY DATA: WBC is 27.6, hemoglobin 14.4, hematocrit is 42.9, platelet count is 246. Sodium is 136, potassium 4.2, chloride is 101, carbon dioxide 31, BUN 18, creatinine 0.79, GFR is greater than 60, fasting glucose 158, calcium is 8.3, C-reactive protein is 2.12. ASSESSMENT AND PLAN: 1. Meningioma. The patient had a right frontal craniotomy with a resection of a large meningioma at the anterior skull base and cranioplasty by Dr. Calabrese on 07/30/2016. We will defer to postoperative care to the neurosurgeon. 2. Tonic clonic seizure, most likely related to the patient's brain mass. The patient's has had altered mental status change due to the brain mass. The neurologist has been consulted. The patient is currently on Decadron IV every six hours and the patient is on Keppra IV every 12 hours. 3. Leukocytosis. This may be related to the patient's steroid use and also due to the physical stress from the surgery. We will continue to monitor. We will also continue to follow with C-reactive protein. 4. 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 5. Encephalopathy. multifactorial. 6. Deep vein thrombosis (DVT) prophylaxis. The patient is on thromboembolic compression stockings (TEDS), sequential compression device (SCD). [facility]
[2016-07-29] VITALS (25 sets, daily range): BP systolic 113–156; BP diastolic 60–88
[2016-07-29] MEDS: dexameTHASONE 4 MG/ML 1ML VIAL (J1100) IV SCH ×5 (00:14→23:43)
[2016-07-29 04:59] LABS: DIFF SLIDE NUMBER 49; MEAN CORPUSCULAR HGB CONC 34.7 g/dl (32.0-36.5); MEAN CORPUSCULAR VOLUME 89.5 fl (80.0-96.0); PLATELET COUNT, AUTOMATED 243 k/mm3 (150-450); RED CELL DISTRIBUTION WIDTH 13.1 % (11.5-14.5); WHITE BLOOD COUNT 28.2 K/mm3 (4.0-10.0)
[2016-07-29 05:00] LABS: INR 1.06
[2016-07-29] MEDS: levETIRAcetam INJection 1,000 MG in D5W 100 ML IV SCH ×2 (05:06→18:20)
[2016-07-29 05:09] LABS: ANION GAP 8 MEQ/L (8-16); BLOOD UREA NITROGEN 17 MG/DL (7-18); CARBON DIOXIDE LEVEL 26 MEQ/L (21-32); CHLORIDE LEVEL 99 MEQ/L (98-107); CREATININE FOR GFR 0.62 MG/DL (0.55-1.02); GLOMERULAR FILTRATION RATE > 60.0 (>51); GLUCOSE, FASTING 161 MG/DL (70-105); POTASSIUM SERUM 3.8 MEQ/L (3.5-5.1); SODIUM LEVEL 133 MEQ/L (136-145)
[2016-07-29 05:22] LABS: SMUDGE CELLS 1+
--- NOTE | 2016-07-29 08:18 | REP ---
Clinical: Fever . Comparison: 07/20/2016 . Findings: The mediastinum and cardiac silhouette are stable and within normal limits for portable technique. The lung russo are clear without acute consolidation, effusion, or pneumothorax. Skeletal structures are intact. Impression: Normal portable chest x-ray Signed by Faisal Kilgore MD 07/29/2016 08:10 A
[2016-07-29] MEDS ORDERED: MANNITOL 20% 100GM/500 ML BAG IV ONE ×2 (10:45→16:15)
--- NOTE | 2016-07-29 10:59 | REP ---
CT HEAD WITHOUT CONTRAST: HISTORY: Lethargy. COMPARISON: 07/28/2016. The patient is status post right frontal craniotomy and resection of a cribriform plate meningioma. Decreased attenuation is present in the frontal lobes consistent with edema. A small amount of hemorrhage and pneumocephalus are present. There is mass effect with partial effacement of the anterior horns of the lateral ventricles and effacement of the suprasellar and perimesencephalic cisterns and third ventricle. The degree of mass effect is slightly increased. There is no midline shift. There is no hydrocephalus. A small subdural fluid collection 2 mm in width is present over the right frontal lobe. The visualized sinuses are clear. IMPRESSION: 1. The patient is status post resection of a cribriform plate meningioma. Edema, a small amount of hemorrhage and pneumocephalus are present. There is mass effect with partial effacement of the anterior horns of the lateral ventricles and effacement of the third ventricle, suprasellar and perimesencephalic cisterns. The mass effect is slightly increased compared to the previous study. 2. Small right frontal lobe subdural hematoma, unchanged compared to the previous study. Signed by Augusto Friedman MD 07/29/2016 11:02 A
[2016-07-29] MEDS ORDERED: MANNITOL 20% BAG 125 ML IV ONE (11:00)
[2016-07-29] MEDS ORDERED: FILTER 1.2 MICRON EXT SET (ADULT TPN & MANNITOL) XX ONE (11:13)
[2016-07-29] MEDS: KCL 20MEQ IN D5/0.45NS 1000ML 1,000 ML IV SCH (11:30)
[2016-07-29] MEDS ORDERED: MANNITOL 20% BAG 250 ML IV ONE (17:00)
--- NOTE | 2016-07-29 17:03 | IPN ---
DATE: 07/29/2016 SUBJECTIVE: The patient is seen and examined in the room today. The patient became more lethargic this morning. The patient is completely nonverbal, able to respond to commands intermittently. 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 The patient started to have a persistent temperature since yesterday evening time. This morning, the patient also started to have worsening leukocytosis and elevated C-reactive protein (CRP). OBJECTIVE: VITAL SIGNS: Temperature is 100.1, pulse is 102, respirations 16, blood pressure is 146/802 pulse oximetry is 94% with two liters nasal cannula. GENERAL: The patient has difficulty maintaining alertness and awakeness. Not able to communicate, barely able to follow commands. HEENT: Surgical wound covered with a dressing in the frontal skull. No active bleeding. No active discharge noted. CARDIOVASCULAR: Positive S1, S2. Regular rate. LUNGS: Clear to auscultation bilaterally. ABDOMEN: Soft, nontender, nondistended. Bowel sounds present. No rebound. No guarding. EXTREMITIES: No edema. No sign of cyanosis. NEUROLOGIC: Unable to test. LABORATORY DATA: WBC is 28.2, hemoglobin 15.3, hematocrit is 43.9, platelet count is 82. Sodium is 133, potassium 3.8, chloride 99, carbon dioxide 26, BUN 17, creatinine 0.62, GFR greater than 60, fasting glucose 161, calcium is 8, C-reactive protein 13.7. ASSESSMENT AND PLAN: 1. Acute leukocytosis with elevated C-reactive protein (CRP) and fever. There is a concern for infection. We will followup with blood cultures. We will followup with a urinalysis (UA) and chest x-ray. The acute changes are discussed with neurosurgeon, Dr. Calabrese. We will consult infectious disease specialist for further assistance. 2. Tonic clonic seizure, most likely secondary to the patient's brain surgery and previous mass. The patient's Keppra has been increased per neurology's recommendations. The patient is more lethargic this morning. It could be due to increased Keppra versus acute disease process occurring at this moment. The patient is currently on Decadron IV and also on Keppra IV. We appreciate neurology's assistance. 3. History of [place]'s palsy with left facial droop. 4. Meningioma, status post right frontal craniotomy with resection of the large meningioma at the anterior skull base by Dr. Calabrese on 07/27/2016. We will defer the postoperative care to the neurosurgery team. 5. Encephalopathy. multifactorial. 6. Deep vein thrombosis (DVT) prophylaxis. The patient is on thromboembolic compression stockings (TEDS), sequential compression device (SCD). MTDD
--- NOTE | 2016-07-29 23:43 | CR ---
DATE OF CONSULTATION: 07/29/2016 I was asked to consult by Dr. Norris for evaluation of postoperative fever, day number two. HISTORY OF PRESENT ILLNESS: Mrs. Sifuentes is a 56-year-old female with no significant past medical history who came into the emergency room on 07/20/2016 with altered mental status and two falls. The patient was brought in by her mother and who expressed that for about six months prior to admission, the patient had become more confused and forgetful. She quit her job a year ago, which was very unusual for her since she has worked since age of 16 for about 40 years. She was more forgetful the day of admission. She would not finish her sentences and was staring in the emptiness. She did not have any fever, chills or night sweats prior to admission. The patient progressively worsened until the day of admission when she was so confused they brought her in. She walked from the car to the emergency room (ER) and then developed a seizure. She was having headache for about two weeks prior to admission, but denied any visual or hearing loss. She stated her appetite had been decreased for about two months and she has lost some weight. She was seen in evaluation by Dr. Calabrese. An MRI of the brain was done which showed a large frontal mass measuring 4.5 x 4.3 x 2.7 cm, which was very large, on the midline in the frontal lobes, enhancing and significant edema. 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 The patient was stabilized and cleared from a cardiology standpoint and went to the operating room on 07/27/[address] Calabrese, who did a right frontal craniotomy with excision of a large cribriform and plate meningioma extending bilaterally, a duraplasty and a cranioplasty. Postoperatively, the patient had more mental status changes. She was barely responsive this morning until she got mannitol, when she did follow more commands. She had a fever of 100-100.6. She is not awake to give any complaints, but seems pretty comfortable. Today her temperature was 100.6 at 4:00 in the morning. She is not on oxygen. She does not seem to have a cough or shortness of breath. Her oxygen saturation is 93-96% on room air. PAST MEDICAL HISTORY: Significant for: 1. Abnormal Pap smear in the past. 2. Menopause PAST SURGICAL HISTORY: Surgical laser and Lasik bilaterally surgery for eyes. MEDICATIONS AT HOME: None. SOCIAL HISTORY: She lives with her . She stopped drinking about 1997. She does not smoke. She does not use drugs. She has a dog, but not children. 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 MEDICATIONS: - dexamethasone 4 mg IV every 6 hours started on 07/29/2016; on 07/28/2016, she had to four doses of dexamethasone 10 mg every 6 hours, and prior to that she has been on 4 mg as well. - Keppra 1000 mg every 12 hours - Zofran as needed - She received four doses of Kefzol 1 gram IV every 6 hours perioperatively. LABORATORY DATA: White count is 28.2, yesterday was 27.6 and the day before 15.9, hemoglobin 15.2, hematocrit 43.9, platelets 243. Neutrophils 82%, lymphocytes 6%. Sodium 133, potassium 3.8, chloride 99, bicarbonate 26, BUN 17, creatinine 0.62, glucose 161, calcium 8. C-reactive protein (CRP) 2.12 on 07/28/2016 and 13.1 on 07/29/2016. Thyroid stimulating hormone (TSH) 0.410 Blood cultures on 07/29/2016 were sent and are pending. A urinalysis had only 12 white cells, 94 red cells. A culture was not sent. Followup head CT done today on 07/29/2016 shows patient is status post resection of cribriform plate meningioma. Edema, a small amount of hemorrhage and pneumocephalus are present. There is mass effect with partial effacement of the anterior horns of the lateral ventricles and the third ventricle. The mass effect is increased compared to prior study and small right frontal subdural hematoma. Chest x-ray showed no acute infiltrates. On physical examination, temperature is 98, pulse 121, respirations 20, blood pressure 114/72, oxygen saturation 93% on room air. HEART: Normal S1, S2. No murmurs, tachycardiac. LUNGS: Clear. No wheezes or rhonchi anteriorly. ABDOMEN: Soft, nontender. No hepatosplenomegaly. GENITOURINARY: Normal. EXTREMITIES: No clubbing, cyanosis or edema. No rashes. The patient has a craniotomy with a large dressing, which I did not open. She has periorbital edema, right more than left. Oropharynx is clear with no lesions, limited view. NECK: Supple without meningismus. IMPRESSION: This is a 57-year-old unfortunate female with very large meningioma, who had resection and postoperatively has had a fever with leukocytosis, elevated C-reactive protein (CRP). Fever is mostly day one postoperatively. It could be atelectasis, could be central fever. Elevated white count and CRP are probably related to stress induced by surgery and steroids. CRP speaks day number two after surgery before it goes back to normal within five days of surgery, so I would not obtain a CRP after surgery, as it is irrelevant to infection. Chest x-ray is clear. She is not hypoxic, she does not have a cough. She is not going to develop a postoperative brain infection day number two [address] does not show any evidence of that. PLAN: At this point, I would not recommend antibiotics as the fever is most likely postoperative day number one, since she has atelectasis, possibly central, and the white count is stress-induced and steroid induced. She received 40 mg of Decadron on 07/28/2016. Will continue to monitor. I have discussed the case with Dr. Norris, as well as Dr. Link, who does not think there is a source of infection at this point. Thank you for the consult.
[2016-07-30] VITALS (24 sets, daily range): BP systolic 93–126; BP diastolic 60–81
[2016-07-30] MEDS: KCL 20MEQ IN D5/0.45NS 1000ML 1,000 ML IV SCH ×2 (02:48→12:17)
[2016-07-30] MEDS: levETIRAcetam INJection 1,000 MG in D5W 100 ML IV SCH ×2 (04:18→17:12)
[2016-07-30 04:54] LABS: DIFF SLIDE NUMBER 54; MEAN CORPUSCULAR HEMOGLOBIN 30.7 pg (27.0-33.0); MEAN CORPUSCULAR HGB CONC 33.9 g/dl (32.0-36.5); MEAN CORPUSCULAR VOLUME 90.4 fl (80.0-96.0); PLATELET COUNT, AUTOMATED 237 k/mm3 (150-450); RED CELL DISTRIBUTION WIDTH 13.4 % (11.5-14.5); WHITE BLOOD COUNT 23.2 K/mm3 (4.0-10.0)
[2016-07-30 04:56] LABS: INR 1.15
[2016-07-30 05:01] LABS: ANION GAP 6 MEQ/L (8-16); BLOOD UREA NITROGEN 16 MG/DL (7-18); CALCIUM LEVEL 8.2 MG/DL (8.5-10.1); CARBON DIOXIDE LEVEL 26 MEQ/L (21-32); CHLORIDE LEVEL 102 MEQ/L (98-107); CREATININE FOR GFR 0.63 MG/DL (0.55-1.02); GLOMERULAR FILTRATION RATE > 60.0 (>51); GLUCOSE, FASTING 186 MG/DL (70-105); POTASSIUM SERUM 4.2 MEQ/L (3.5-5.1); SODIUM LEVEL 134 MEQ/L (136-145)
[2016-07-30] MEDS: dexameTHASONE 4 MG/ML 1ML VIAL (J1100) IV SCH ×3 (05:23→17:12)
--- NOTE | 2016-07-30 10:59 | REPUSA ---
CT of the head Clinical history: postoperative. Protocol: Multiple axial CT images obtained with 5 mm slice thickness were obtained through the head without administration of contrast. Comparison: 07/20/2016. Findings: The patient is status post resection of the midline frontal lobe tumor described on the pr ior study. Emphysema in the right frontal lobe on postoperative changes are noted. There is a small a mount of subdural blood in the left frontal lobe. Diffuse low attenuation of the frontal lobes descri bed on the prior study is otherwise grossly stable. Extensive craniotomy changes in the right frontal lobe are not appreciated. The other osseous structures are unremarkable. The visualized paranasal si nuses and mastoid air cells are clear. Impression: 1. Interval resection of the central frontal lobe mass described on the prior study. 2. Surgical changes including emphysema the frontal lobes are noted. A tiny amount of subdural blood is seen in the left frontal lobe. 3. Extensive low attenuation changes in the frontal lobes bilaterally are stable. 4. Extensive right frontal craniotomy changes as described. 5. No significant mass effect or herniation described at this time.
--- NOTE | 2016-07-30 16:34 | IPN ---
DATE: 07/30/2016 Petra is doing very well. She is markedly improved compared to yesterday. She had no fevers today. She was able to get out of bed with physical therapy. She follows commands. She was able to verbalize some words as well. She denies any headache, nausea, vomiting, abdominal pain, cough or shortness of breath. Temperature is 97.6, pulse 78, respirations 18, blood pressure 121/76, oxygen saturation 95% on room air. Heart: Normal S1, S2, no murmurs. Lungs are clear anteriorly. No wheezes, rales, or rhonchi. Abdomen: Soft, nontender. Extremities: No edema. Frontal dressing was not changed. There is periorbital edema both eyes. Neurological exam: The patient is able to follow commands, open her mouth. Moves extremities, all four, but did not verbalize too much for me. LABORATORY DATA: White count is 23.2, hemoglobin 14.4, hematocrit 42.4, platelets 237, 92% neutrophils, 5% lymphocytes. Sodium 134, potassium 4.2, chloride 102, bicarbonate 26, BUN 16, creatinine 0.63, glucose 186, osmolality 280, calcium 8.2, CRP 13.2. Blood cultures two sets are negative. IMPRESSION: 1. Status post resection of meningioma with postoperative low grade fever which is expected postoperative day #1 or day #2 with major brain surgery. Possibly atelectasis. The patient is off antibiotic. She has not had recurrent fever. Her white count is improving. 2. Leukocytosis most likely related to Decadron. She was on 10 mg every 6 hours, currently on 4 mg every 6 hours. 3. Mental status changes. Probably a combination of seizure medication, postictal, and major surgery. PLAN Will continue to monitor, on no antibiotics. MTDD
--- NOTE | 2016-07-30 17:02 | IPN ---
DATE: 07/30/2016 SUBJECTIVE: The patient seen and examined in the room today. The patient became very sleepy and had difficulty waking up in the morning. The patient was woken up with sternal rub and after less than half a minute, the patient would fall back into rest. Unable to sustain alertness and awakeness to check orientation. Vitals are stable. No significant events reported on telemetry. OBJECTIVE: VITAL SIGNS: Temperature is 99, pulse is 84, respirations 20, blood pressure is 103/72, pulse oximetry is 91% on room air. GENERAL: The patient requires sternal rub to wake the patient up frequently. Unable to check orientation. Unable to check if patient is able to follow commands. HEENT: Positive surgical scar across the frontal skull. Dressing was placed July 29, 2016. No active bleeding. No discharge was noted. CARDIOVASCULAR: Positive S1, S2, regular rate. LUNGS: Clear to auscultation bilaterally. ABDOMEN: Soft, nontender, nondistended. Bowel sounds present. No rebound. No guarding. EXTREMITIES: No edema, no sign of cyanosis. NEUROLOGICAL: Unable to examine. LABORATORY DATA: WBC is 23.2, hemoglobin 14.4, hematocrit 42.4, platelet count is 237. Sodium 134, potassium 4.2, chloride is 102, carbon dioxide 26, BUN 16, creatinine 0.63. GFR greater than 60, fasting glucose 186, calcium 8.2, C-reactive protein is 13.2. Microbiology: Blood culture is negative after 24 hours times two sets. ASSESSMENT AND PLAN: 1. Acute leukocytosis with elevated C-reactive protein and fever, possibly due to trauma from the major surgery. Infectious disease specialist, Dr. Adam currently recommends no antibiotic treatment at this moment and the patient's temperature improved spontaneously without any Tylenol or ibuprofen. The patient also noted to have decreased WBC and CRP. All the cultures remained negative so far. The patient's vitals are in the satisfactory range. 2. Meningeal mass, status post right frontal craniotomy with resection of the large meningioma at the anterior skull base by Dr. Calabrese. Procedure was performed on July 27, 2016. The patient had multiple daily CTs of the brain performed. There is no swelling or mass effect of the brain. The patient had multiple doses of Mannitol. Continue to monitor the patient. Will defer the postsurgical care to the neurosurgical team. 3. Tonic-clonic seizures. Most likely secondary to patient's brain surgery and the previous mass. The patient has a history of recurrent tonic-clonic seizures with low dose Keppra. Keppra dosage has been increased per neurologist's recommendation. 4. History of [place]' palsy with left facial droop. 5. Encephalopathy. multifactorial. 6. Deep venous thrombosis (DVT) prophylaxis. The patient on thromboembolism deterrents (TEDs) and sequential compression devices. MTDD
[2016-07-31] VITALS (24 sets, daily range): BP systolic 88–119; BP diastolic 53–87
[2016-07-31] MEDS: KCL 20MEQ IN D5/0.45NS 1000ML 1,000 ML IV SCH (03:47)
[2016-07-31] MEDS: dexameTHASONE 4 MG/ML 1ML VIAL (J1100) IV SCH ×4 (05:11→17:03)
[2016-07-31] MEDS: levETIRAcetam INJection 1,000 MG in D5W 100 ML IV SCH ×2 (05:11→17:03)
[2016-07-31 05:25] LABS: DIFF SLIDE NUMBER 33; MEAN CORPUSCULAR HEMOGLOBIN 30.7 pg (27.0-33.0); MEAN CORPUSCULAR HGB CONC 33.9 g/dl (32.0-36.5); MEAN CORPUSCULAR VOLUME 90.3 fl (80.0-96.0); PLATELET COUNT, AUTOMATED 223 k/mm3 (150-450); RED CELL DISTRIBUTION WIDTH 13.3 % (11.5-14.5); WHITE BLOOD COUNT 15.5 K/mm3 (4.0-10.0)
[2016-07-31 05:26] LABS: INR 1.21
[2016-07-31 05:28] LABS: ANION GAP 5 MEQ/L (8-16); BLOOD UREA NITROGEN 17 MG/DL (7-18); CALCIUM LEVEL 7.8 MG/DL (8.5-10.1); CARBON DIOXIDE LEVEL 27 MEQ/L (21-32); CHLORIDE LEVEL 101 MEQ/L (98-107); CREATININE FOR GFR 0.56 MG/DL (0.55-1.02); GLOMERULAR FILTRATION RATE > 60.0 (>51); GLUCOSE, FASTING 150 MG/DL (70-105); POTASSIUM SERUM 4.2 MEQ/L (3.5-5.1); SODIUM LEVEL 133 MEQ/L (136-145)
[2016-07-31 09:46] LABS: ALBUMIN 2.2 GM/DL (3.2-5.2); ALBUMIN/GLOBULIN RATIO 0.65 (1.00-1.93); BILIRUBIN,DIRECT 0.2 MG/DL (0.0-0.2); BILIRUBIN,TOTAL 0.5 MG/DL (0.2-1.0); TOTAL PROTEIN 5.6 GM/DL (6.4-8.2)
--- NOTE | 2016-07-31 15:05 | IPN ---
DATE: 07/31/2016 SUBJECTIVE: The patient seen and examined in the room today. In the morning, the patient is a little bit sleepy, not able to talk, but she is able to follow commands. Later after she woke up from her rest, she was able to communicate with me and the patient has intact orientation and the patient is able to follow commands. No events detected on telemetry. OBJECTIVE: VITAL SIGNS: Temperature is 98.6, pulse is 58, respirations 20, blood pressure is 102/63, pulse oximetry is 94% on room air. GENERAL: No sign of acute distress. Alert, awake, and oriented times three. HEENT: The patient has a dressing across the whole frontal skull. Dressing is dry and clean. CARDIOVASCULAR: Positive S1, S2, regular rate. LUNGS: Clear to auscultation bilaterally. ABDOMEN: Soft, nontender, nondistended. Bowel sounds present. No rebound. No guarding. EXTREMITIES: No edema. No sign of cyanosis. LABORATORY DATA: WBC is 15.5, hemoglobin 13.6, hematocrit is 40, platelet count is 223. Sodium is 133, potassium 4.2, chloride is 101, carbon dioxide 27, BUN 17, creatinine 0.56. GFR greater than 60, fasting glucose 150, calcium is 7.8, C-reactive protein is 5.96. Microbiology: Blood culture is no growth after 48 hours times two sets. ASSESSMENT AND PLAN: 1. Acute leukocytosis with elevated C-reactive protein and fever, most likely due to recent brain surgery, the physical stress causing the acute response. The patient has not received any antibiotic treatment. The patient's fever has resolved in the last 48 hours. The patient continues to have improvement. WBC decreased from 27.6 to 15.5. C-reactive protein decreased from 13.7 to 5.96. We will continue current management. 2. Meningeal mass, status post frontal craniotomy with resection of the large meningioma at the anterior skull base by Dr. Calabrese. Surgery was performed on July 27, 2016. Today is postoperative day #4. We will defer the postsurgical care to the neurosurgery team. 3. Tonic-clonic seizures. The patient has been on Keppra. No recurrence of seizure is observed. We appreciate neurology's input. 4. History of [place]' palsy with left facial droop. 5. Encephalopathy, possibly due to the patient's brain swelling. It is improving. 6. Deep venous thrombosis (DVT) prophylaxis. The patient on thromboembolism deterrents (TEDs) and sequential compression devices.
--- NOTE | 2016-07-31 16:09 | EEG ---
DATE OF PROCEDURE: 07/29/2016 REFERRING PHYSICIAN: Dr. Hebert Perez DIAGNOSIS: Seizures. EEG NUMBER: [id number] HISTORY: The patient is a 56-year-old woman with a history of right frontal craniotomy due to large tumor in bilateral frontal head region. This EEG was done to rule out epileptic potential and assess degree of encephalopathy. She is currently on Keppra, mannitol, Keflex, etc. TECHNICAL DESCRIPTION: This digital EEG was recorded by 21 scalp, ear and two EKG electrodes and was reviewed in bipolar and referential montages following reformatting in 10-20 international electrode placement system. INTERPRETATION: The patient was noted to be in awake and drowsy states during this EEG. Resting background rhythm consisted of 7-8 Hz theta activity measuring 15-40 microvolts in amplitude. Stage I and II sleep were reviewed and showed right frontal and central breach rhythm. Hyperventilation could not be performed. Photic stimulation remained unremarkable. Left frontal, central and temporal spikes and sharp waves were noted. EKG revealed normal sinus rhythm. CONCLUSION: This EEG in awake, drowsy states, stage I and II sleep is abnormal due to presence of right frontal and central breach rhythm and left frontal, central and temporal epileptiform discharges consistent with focal cortical structural or functional abnormality with epileptic potential. Clinical correlation is recommended.
[2016-08-01] VITALS (20 sets, daily range): BP systolic 85–135; BP diastolic 54–78
[2016-08-01] MEDS: dexameTHASONE 4 MG/ML 1ML VIAL (J1100) IV SCH ×3 (00:28→12:24)
[2016-08-01 04:40] LABS: MEAN CORPUSCULAR HEMOGLOBIN 30.8 pg (27.0-33.0); MEAN CORPUSCULAR HGB CONC 33.9 g/dl (32.0-36.5); MEAN CORPUSCULAR VOLUME 90.8 fl (80.0-96.0); RED CELL DISTRIBUTION WIDTH 13.3 % (11.5-14.5); WHITE BLOOD COUNT 17.9 K/mm3 (4.0-10.0)
[2016-08-01 04:54] LABS: INR 1.14
[2016-08-01 05:01] LABS: ANION GAP 8 MEQ/L (8-16); BLOOD UREA NITROGEN 22 MG/DL (7-18); CALCIUM LEVEL 7.8 MG/DL (8.5-10.1); CARBON DIOXIDE LEVEL 25 MEQ/L (21-32); CHLORIDE LEVEL 101 MEQ/L (98-107); CREATININE FOR GFR 0.57 MG/DL (0.55-1.02); GLOMERULAR FILTRATION RATE > 60.0 (>51); GLUCOSE, FASTING 129 MG/DL (70-105); POTASSIUM SERUM 4.1 MEQ/L (3.5-5.1); SODIUM LEVEL 134 MEQ/L (136-145)
[2016-08-01] MEDS: levETIRAcetam INJection 1,000 MG in D5W 100 ML IV SCH ×2 (05:24→17:07)
--- NOTE | 2016-08-01 10:59 | IPN ---
DATE: 08/01/2016 SUBJECTIVE: Patient seen and examined in the room today. Patient was able to follow commands and answer some of the questions. It is noted the patient had a fluctuation in her alertness and awakeness, especially during the employee benefits director time. The patient continues to have bradycardia monitored on telemetry. OBJECTIVE: VITAL SIGNS: Temperature is 98.2, pulse is 57, respirations 20, blood pressure is 116/75, pulse oximetry is 95% in room air. GENERAL: Patient is alert and awake, able to follow commands. HEENT: Surgical dressing across the whole frontal skull. Dressing is clean and dry. No active bleeding or discharge noted. CARDIOVASCULAR: Bradycardia with heart rate running between 55-65. Positive S1, S2, regular rate. LUNGS: Clear to auscultation bilaterally. ABDOMEN: Soft, nontender, nondistended. Bowel sounds present. No rebound. No guarding. EXTREMITIES: No edema. No sign of cyanosis. LABORATORY DATA: WBC is 17.9, hemoglobin 13.4, hematocrit is 33.4, platelet count is 265. Sodium is 134, potassium 4.1, chloride is 101, carbon dioxide 25, BUN 22, creatinine 0.57. GFR greater than 60, fasting glucose 129, osmolarity is 284. Calcium is 7.8, C-reactive protein is 2.23. ASSESSMENT AND PLAN: 1. Acute leukocytosis with elevated C-reactive protein and fever, most likely due to recent brain surgery, the physical stress causing the acute inflammatory response. The patient has not been on antibiotics and her fever has resolved. WBC, CRP have been continuously improving. 2. 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 Calabrese. Surgery was performed on July 27, 2016. Today is postoperative day 5. Will defer the postsurgical care to the neurosurgery team. 3. Tonic-clonic seizures. No recurrent. The patient has been on Keppra. We appreciate neurology's assistance. 4. 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 Stable. 5. Encephalopathy. Improving. 6. Deep venous thrombosis (DVT) prophylaxis. The patient on thromboembolism deterrents (TEDS) and sequential compression devices.
[2016-08-01] MEDS ORDERED: SLF 3 ML SYR IV PRN (12:30)
[2016-08-01] MEDS: SLF 3 ML SYR IV SCH ×2 (17:08→21:34)
[2016-08-01] MEDS: dexameTHASONE 4 MG/ML 1ML VIAL (J1100) PO SCH (18:13)
[2016-08-02] VITALS (11 sets, daily range): BP systolic 97–120; BP diastolic 56–70
[2016-08-02] MEDS: dexameTHASONE 4 MG/ML 1ML VIAL (J1100) PO SCH ×5 (00:10→23:57)
[2016-08-02 05:11] LABS: MEAN CORPUSCULAR HEMOGLOBIN 31.3 pg (27.0-33.0); MEAN CORPUSCULAR HGB CONC 34.8 g/dl (32.0-36.5); MEAN CORPUSCULAR VOLUME 90.2 fl (80.0-96.0); RED CELL DISTRIBUTION WIDTH 13.3 % (11.5-14.5); WHITE BLOOD COUNT 16.9 K/mm3 (4.0-10.0)
[2016-08-02 05:20] LABS: ANION GAP 9 MEQ/L (8-16); BLOOD UREA NITROGEN 22 MG/DL (7-18); CARBON DIOXIDE LEVEL 27 MEQ/L (21-32); CHLORIDE LEVEL 102 MEQ/L (98-107); GLOMERULAR FILTRATION RATE > 60.0 (>51); GLUCOSE, FASTING 128 MG/DL (70-105); SODIUM LEVEL 138 MEQ/L (136-145)
[2016-08-02] MEDS: levETIRAcetam INJection 1,000 MG in D5W 100 ML IV SCH ×2 (05:23→17:49)
[2016-08-02] MEDS: SLF 3 ML SYR IV SCH ×3 (05:24→19:59)
--- NOTE | 2016-08-02 10:01 | IPN ---
DATE: 08/02/2016 SUBJECTIVE: Patient seen and examined in the room today. This morning, the patient is sleeping comfortably in bed. When I woke up the patient, the patient is able to follow commands, but she is not verbal. The patient continued to have waxing and waning of alertness and awakeness, especially in the pharmacy technician instructor. On cardiac telemetry, the patient was noted to have a bradycardia with average of 50 in the pharmacy technician instructor during rest. However, when the patient is more awake however usually will improve to a normal range. No overnight events reported. OBJECTIVE: VITAL SIGNS: Temperature is 97.6, pulse is 60, respirations 18, blood pressure is 110/70, pulse oximetry is 96% in room air. GENERAL: Patient is alert and awake, able to follow commands. HEENT: Surgical dressing located on whole frontal skull. Dressing was changed on 07/29/2016. No active drainage or bleeding noted on the dressing. CARDIOVASCULAR: Bradycardia with heart rate running 50s. Positive S1, S2, regular rate. LUNGS: Clear to auscultation bilaterally. ABDOMEN: Soft, nontender, nondistended. Bowel sounds present. No rebound. No guarding. EXTREMITIES: No edema. No sign of cyanosis. Compression devices in place. LABORATORY DATA: WBC is 16.9, hemoglobin 13.1, hematocrit is 37.8, platelet count is 281. Sodium is 138, potassium 4, chloride is 102, carbon dioxide 27, BUN 22, creatinine 0.6. GFR greater than 60, fasting glucose 128, serum osmolarity is 287. Calcium is 8. ASSESSMENT AND PLAN: 1. Acute leukocytosis with elevated C-reactive protein and fever, most likely secondary to recent brain surgery and physical stress causing acute inflammatory response. The patient is not on any antibiotics with marked signs of improving. Continue to monitor. 2. 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 Calabrese. Surgery was done on 07/27/2016, today is postoperative day 6. Defer the postsurgical care to the neurosurgery team. 3. Tonic-clonic seizures. The patient is on Keppra. Neurology consulted and appreciate their assistance. No recurrence. 4. 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 Stable. 5. Encephalopathy. Improving. 6. Deep venous thrombosis (DVT) prophylaxis. The patient is on thromboembolism deterrents (TEDS) and sequential compression devices.
[2016-08-03 02:00] VITALS: BP 105/61
[2016-08-03] MEDS: SLF 3 ML SYR IV SCH ×2 (05:21→14:24)
[2016-08-03] MEDS: dexameTHASONE 4 MG/ML 1ML VIAL (J1100) PO SCH ×2 (05:21→12:43)
[2016-08-03] MEDS: levETIRAcetam INJection 1,000 MG in D5W 100 ML IV SCH (05:21)
[2016-08-03 05:48] LABS: MEAN CORPUSCULAR HEMOGLOBIN 31.8 pg (27.0-33.0); MEAN CORPUSCULAR VOLUME 90.8 fl (80.0-96.0); RED CELL DISTRIBUTION WIDTH 13.4 % (11.5-14.5); WHITE BLOOD COUNT 18.3 K/mm3 (4.0-10.0)
[2016-08-03 06:00] VITALS: BP 104/64
[2016-08-03 06:13] LABS: OSMOLALITY SERUM 285 MOSM/KG (275-295)
[2016-08-03 06:29] LABS: ANION GAP 8 MEQ/L (8-16); BLOOD UREA NITROGEN 21 MG/DL (7-18); CALCIUM LEVEL 8.3 MG/DL (8.5-10.1); CARBON DIOXIDE LEVEL 26 MEQ/L (21-32); CHLORIDE LEVEL 103 MEQ/L (98-107); CREATININE FOR GFR 0.61 MG/DL (0.55-1.02); GLOMERULAR FILTRATION RATE > 60.0 (>51); GLUCOSE, FASTING 122 MG/DL (70-105); POTASSIUM SERUM 3.9 MEQ/L (3.5-5.1); SODIUM LEVEL 137 MEQ/L (136-145)
[2016-08-03 10:00] VITALS: BP 109/71
--- NOTE | 2016-08-03 12:24 | REP ---
CT HEAD WITHOUT CONTRAST: HISTORY: Brain swelling. COMPARISON: 07/29/2016. The patient is status post right frontal craniotomy and resection of a cribriform plate meningioma. Decreased attenuation is present in the frontal lobes consistent with edema. A small amount of hemorrhage and pneumocephalus are present that are decreased compared to the prior study. There is mass effect with partial effacement of the anterior horns on the lateral ventricles. There is effacement of the third ventricle and suprasellar and perimesencephalic cisterns. The degree of mass effect is unchanged compared to the previous study. There is no midline shift. There is no extracerebral collection. The visualized sinuses are clear. IMPRESSION: The patient is status post resection of a cribriform plate meningioma. Edema and a small amount of hemorrhage or pneumocephalus are present. The hemorrhage and pneumocephalus are decreased compared to the previous study. There is mass effect with partial effacement of the anterior horns of the lateral ventricles. There is effacement of the third ventricle, suprasellar and perimesencephalic cisterns. The edema is unchanged compared to the previous study. Signed by Augusto Friedman MD 08/03/2016 12:27 P
[2016-08-03 14:00] VITALS: BP 111/72
[2016-08-03] MEDS ORDERED: KEPP500T6 PO (14:36)
[2016-08-03] MEDS ORDERED: decadron PO (14:36)
[2016-08-03] MEDS ORDERED: DEXA2TA PO (14:53)
[2016-08-03] MEDS ORDERED: KEPP1000 PO (15:23)
--- NOTE | 2016-08-03 17:11 | DSES ---
DATE OF ADMISSION: 07/20/2016 DATE OF DISCHARGE: 08/03/2016 PRIMARY CARE PROVIDER: None. Will establish with Dr. Michelle Omalley in the [facility]. CONSULTANTS: Neurosurgery: Dr. Calabrese. Neurologists: Dr. Becker/Dr. Link. Patented Hogshead Assembler: Dr. Kang PROCEDURES: Right frontal craniotomy with excision of large cribriform plate meningioma, cranioplasty and paracentesis with CUSA. COMPLICATIONS: None. ADMISSION/DISCHARGE DIAGNOSES: 1. Meningioma mass, status post frontal craniotomy with resection of large meningioma at the anterior skull base. 2. Tonic-clonic seizures. 3. Acute leukocytosis with elevated C-reactive protein and fever secondary to physical distress. 4. History of [place]'s palsy with left facial droop. 5. Encephalopathy. HOSPITALIZATION COURSE: The patient is a 56-year-old female, presented to [facility] on 07/20/2016 for frequent fall and altered mental status. Neurologist, Dr. Link, was consulted. Brain imaging study was performed. MRI of the brain was performed, and the patient was found to have a large enhancing mass. Patient also had generalized tonic-clonic seizures and the patient's seizure medication was adjusted by the neurologist and Dr. Calabrese was consulted for the brain mass. Due to the abnormal EKG, breakdown man consulted for preoperative optimization. On 07/27/2016, the patient was brought to the operating room (OR) by Dr. Calabrese for right anterior craniotomy with excision of a large meningioma. The patient was transferred back to the intensive care unit (ICU) after the procedure. Postoperatively, the patient started having more frequent fever up to 100.8, and the patient continued to have leukocytosis with elevated C-reactive protein (CRP). Blood culture was obtained and infectious disease specialist, Dr. Elma Adam, was consulted who recommended conservative management without antibiotics and patient's fever and white count resolved spontaneously without antibiotic usage. The patient's mentation continued to improve, and the patient' s medication is also being actively adjusted by Dr. Calabrese for the brain swelling. The patient is also being evaluated by physical therapy and occupational therapy. On 08/03/2016, the patient was cleared by Dr. Calabrese for discharge and the patient also passed physical therapy and occupational therapy. OBJECTIVE: VITAL SIGNS: Temperature is 97.4, pulse is 56, respiratory rate 16, blood pressure is 104/64, pulse oximetry is 95% in room air. LABORATORY DATA: WBC is 18.3, hemoglobin 12.8, hematocrit 36.7, platelet count is 292. Sodium is 137, potassium 3.9, chloride 103, carbon dioxide 26, BUN 21, creatinine 0.61, GFR greater than 60, fasting glucose 121, osmolality is 285, calcium is 8.3. PT is 14.7, INR is 1.14. Microbiology: Blood culture was negative after 5 days, sample collected on 07/29/2016. Brain tissue pathology showed meningioma. IMAGING STUDIES: CT of the head without contrast on 07/20/2016 showed extensive low density changes in the bifrontal white matter tract with subtle extension into the temporal lobe. MRI of the brain without followed by with contrast on 07/20/2016 showed large enhancing mass along the midline of the frontal lobes. Extensive surrounding mass effect and edema throughout the frontal lobe bilaterally causing the mass effect and displacing the frontal horn of the lateral ventricle bilaterally. No discrete evidence of acute hemorrhage or infarct. MRA of the head without followed by with contrast on 07/21/2016 showed no aneurysm or arteriovenous (AV) malformation. No sinus thrombosis. There is stenosis of the distal right transverse sinus. 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 MRI of the brain with contrast on 07/26/2016 showed contrast-enhanced MR of the brain. CT of the head without contrast on 07/27/2016 showed interval resection of the central frontal lobe mass. Surgical changes include emphysema of the frontal lobe. Extensive low attenuation changes in the frontal lobe bilaterally. Extensive right frontal craniotomy changes. No significant mass effect or herniation. CT of the head without contrast on 07/28/2016 showed a small 2 mm right frontal lobe subdural hematoma. Mass effect with partial effacement of the anterior horn of the lateral ventricles, third ventricle, suprasellar and perimesencephalic cisterns. CT of the head without contrast on 07/29/2016 showed there is mass effect with partial effacement of the anterior horn of the lateral ventricles and effacement of the third ventricle, suprasellar and perimesencephalic cisterns. The mass effect is slightly increased compared to previous study. CT of the head without contrast on 08/03/2016 showed edema and a small amount of hemorrhages or pneumocephalus are present. The hemorrhage and pneumocephalus are decreased compared to previous study. There is a mass effect with partial effacement of the anterior horn of the lateral ventricles. There is effacement of the third ventricle, suprasellar and perimesencephalic cisterns. Edema is unchanged compared to previous study. DISCHARGE MEDICATIONS: - dexamethasone taper, script provided by Dr. Calabrese, 2 mg four times a day for 12 days, then 2 mg three times a day for 4 days, then 1 mg three times a day for 4 days, then 1 mg twice a day for 2 weeks. - Keppra 1000 mg twice a day for 90 days. DISCHARGE INSTRUCTIONS: Discontinue lines. Discharge home. Ambulate with a walker. Diet as tolerated. The patient should establish with a primary care provider in 1-2 weeks. The patient should followup with Dr. Calabrese in 10 days. DISCHARGE CONDITION: Stable. DISCHARGE TIME: Greater than 30 minutes. [facility]
== END 2016-08-03 16:00 | disposition home health service (06) | DRG 21 ==
LOC: M ED 18:20 → M ED INP 21:02 → M PCU 22:38 → M ICU 07-27 13:54 → M MS5PR 08-02 18:30
PROVIDERS: ADMIT Internal Medicine; ATTEND Internal Medicine
PROC: 00970ZZ Drainage of Cerebral Hemisphere, Open Approach (ICD-10-PCS; 2016-07-27)
PROC: 00B00ZX Excision of Brain, Open Approach, Diagnostic (ICD-10-PCS; principal; 2016-07-27 09:15)
DX: D32.0 Benign neoplasm of cerebral meninges (principal); G93.6 Cerebral edema; G93.41 Metabolic encephalopathy; G40.409 Other generalized epilepsy and epileptic syndromes, not intractable, without status epilepticus; I65.23 Occlusion and stenosis of bilateral carotid arteries; R41.82 Altered mental status, unspecified; G51.0 Bell's palsy; D72.829 Elevated white blood cell count, unspecified; R50.82 Postprocedural fever; R00.1 Bradycardia, unspecified

== ENCOUNTER → 2016-10-15 | Outpatient (REF) | payer OTHER ==
[~2016-10-15] MED LIST: DEXA2TA PO; KEPP10002 PO; KEPP1TAB PO; decadron PO
== END ==
LOC: M LABNEURO 15:34
PROVIDERS: ATTEND Physician Assistant Medical
DX: G40.909 Epilepsy, unspecified, not intractable, without status epilepticus (principal)

== ENCOUNTER → 2016-10-21 | Outpatient (REF) | payer OTHER | LOC: M LAB REF 13:14 | PROVIDERS: ATTEND Family Medicine | DX: Z53.8 Procedure and treatment not carried out for other reasons (principal) ==

== ENCOUNTER → 2016-11-18 | Outpatient (CLI) | payer OTHER ==
[2016-11-18 09:58] LABS: BASO # 0.1 10^3/uL (0.0-0.2); BASO % 0.8 % (0.0-1.0); EOS # 0.3 10^3/uL (0.0-0.50); EOS % 4.6 % (0.0-3.0); IMMATURE GRANULOCYTE % 0.3 % (0-0); LYMPH # 3.3 10^3/uL (1.5-4.5); LYMPH % 45.9 % (24.0-44.0); MEAN CORPUSCULAR HEMOGLOBIN 29.1 pg (27.0-33.0); MEAN CORPUSCULAR HGB CONC 32.2 g/dl (32.0-36.5); MEAN CORPUSCULAR VOLUME 90.4 fl (80.0-96.0); MONO # 0.6 10^3/uL (0.0-0.8); NEUTROPHILS # 2.9 10^3/uL (1.8-7.7); NEUTROPHILS % 40.4 % (36.0-66.0); RED CELL DISTRIBUTION WIDTH 13.2 % (11.5-14.5); WHITE BLOOD COUNT 7.2 10^3/uL (4.0-10.0)
[2016-11-18 10:23] LABS: ALBUMIN 3.5 GM/DL (3.2-5.2); ALBUMIN/GLOBULIN RATIO 1.09 (1.00-1.93); ALKALINE PHOSPHATASE 103 U/L (45-117); ALT/SGPT 26 U/L (12-78); ANION GAP 5 MEQ/L (8-16); AST/SGOT 19 U/L (15-37); BILIRUBIN,TOTAL 0.6 MG/DL (0.2-1.0); BLOOD UREA NITROGEN 14 MG/DL (7-18); CALCIUM LEVEL 9.7 MG/DL (8.5-10.1); CARBON DIOXIDE LEVEL 29 MEQ/L (21-32); CHLORIDE LEVEL 107 MEQ/L (98-107); CHOLESTEROL LEVEL 162 MG/DL (<200); CREATININE FOR GFR 0.57 MG/DL (0.55-1.02); FERRITIN 60 NG/ML (8-252); GLOMERULAR FILTRATION RATE > 60.0 (>51); GLUCOSE, FASTING 91 MG/DL (70-105); SODIUM LEVEL 141 MEQ/L (136-145); TOTAL PROTEIN 6.7 GM/DL (6.4-8.2); TRIGLYCERIDES LEVEL 121 MG/DL (<150)
== END ==
LOC: M WUC 08:46
PROVIDERS: ATTEND Physician Assistant Medical
DX: D64.9 Anemia, unspecified (principal); E78.2 Mixed hyperlipidemia; E55.9 Vitamin D deficiency, unspecified

== ENCOUNTER → 2017-02-24 | Outpatient (CLI) | payer OTHER | LOC: M WHC 13:17 | DX: Z12.31 Encounter for screening mammogram for malignant neoplasm of breast (principal) | CPT/HCPCS: 77067 ==

== ENCOUNTER → 2017-02-26 | Outpatient (REF) | payer OTHER, MEDICAID | LOC: M LABNEURO 09:12 | DX: G40.909 Epilepsy, unspecified, not intractable, without status epilepticus (principal) ==

== ENCOUNTER → 2017-02-26 | Outpatient (REF) | payer OTHER, MEDICAID ==
[2017-02-26 13:19] LABS: ALBUMIN 3.8 GM/DL (3.2-5.2); ALBUMIN/GLOBULIN RATIO 1.15 (1.00-1.93); ALKALINE PHOSPHATASE 150 U/L (45-117); ALT/SGPT 18 U/L (12-78); ANION GAP 6 MEQ/L (8-16); AST/SGOT 16 U/L (7-37); BILIRUBIN,TOTAL 0.4 MG/DL (0.2-1.0); BLOOD UREA NITROGEN 16 MG/DL (7-18); CALCIUM LEVEL 9.2 MG/DL (8.5-10.1); CARBON DIOXIDE LEVEL 29 MEQ/L (21-32); CHLORIDE LEVEL 105 MEQ/L (98-107); CHOLESTEROL LEVEL 171 MG/DL (<200); CHOLESTEROL RISK RATIO 3.053 (<5); CREATININE FOR GFR 0.66 MG/DL (0.55-1.02); FERRITIN 46 NG/ML (8-252); GLOMERULAR FILTRATION RATE > 60.0 (>51); GLUCOSE, FASTING 94 MG/DL (70-105); HDL CHOLESTEROL 56 MG/DL (>40); IRON (FE) 54 UG/DL (50-170); LDL CHOLESTEROL 91.8 MG/DL (<100); NON-HDL-C 115 MG/DL; POTASSIUM SERUM 4.4 MEQ/L (3.5-5.1); SODIUM LEVEL 140 MEQ/L (136-145); TOTAL PROTEIN 7.1 GM/DL (6.4-8.2); TRIGLYCERIDES LEVEL 116 MG/DL (<150)
[2017-02-26 13:20] LABS: BASO # 0.1 10^3/uL (0.0-0.2); BASO % 1.1 % (0.0-1.0); EOS # 0.3 10^3/uL (0.0-0.50); EOS % 3.8 % (0.0-3.0); HEMOGLOBIN 13.4 g/dl (12.0-16.0); IMMATURE GRANULOCYTE % 0.3 % (0-0); LYMPH # 3.2 10^3/uL (1.5-4.5); LYMPH % 47.4 % (24.0-44.0); MEAN CORPUSCULAR HEMOGLOBIN 29.8 pg (27.0-33.0); MEAN CORPUSCULAR HGB CONC 33.5 g/dl (32.0-36.5); MEAN CORPUSCULAR VOLUME 89.1 fl (80.0-96.0); MONO # 0.5 10^3/uL (0.0-0.8); MONO % 7.2 % (0.0-5.0); NEUTROPHILS # 2.7 10^3/uL (1.8-7.7); NEUTROPHILS % 40.2 % (36.0-66.0); PLATELET COUNT, AUTOMATED 239 10^3/uL (150-450); RED BLOOD COUNT 4.49 10^6/uL (4.00-5.40); RED CELL DISTRIBUTION WIDTH 14.2 % (11.5-14.5); WHITE BLOOD COUNT 6.7 10^3/uL (4.0-10.0)
== END ==
LOC: M LABNEURO 09:09
DX: D64.9 Anemia, unspecified (principal); E78.2 Mixed hyperlipidemia

== ENCOUNTER → 2017-07-12 | Outpatient (REF) | payer OTHER, MEDICAID ==
[2017-07-15 14:13] LABS: LEVETIRACETAM (KEPPRA) 19.8 ug/mL (10.0-40.0)
== END ==
LOC: M LABNEURO 10:36
DX: R56.9 Unspecified convulsions (principal)
CPT/HCPCS: 36415

== ENCOUNTER → 2017-07-28 | Outpatient (REF) | payer OTHER, MEDICAID ==
[2017-07-28 13:35] LABS: ERYTHROCYTE SEDIMENTATION RATE 9 mm/hr (0-30)
[2017-07-28 13:38] LABS: RHEUMATOID FACTOR QUANT < 10.0 IU/ML (<15.0)
[2017-07-29 14:14] LABS: ANTINUCLEAR ANTIBODIES DIRECT Negative (Negative)
[2017-08-04 12:40] LABS: DRVV SCREEN 39.7 SEC
[2017-08-04 12:50] LABS: PTT LUPUS TYPE ANTICOAG SCREEN 0.9 (0-1.2)
== END ==
LOC: M LABNEURO 09:00
DX: M25.541 Pain in joints of right hand (principal); M25.542 Pain in joints of left hand
CPT/HCPCS: 85730

== ENCOUNTER → 2017-09-06 | Outpatient (REF) | payer OTHER, MEDICAID ==
[2017-09-06 12:54] LABS: ANION GAP 9 MEQ/L (8-16); BLOOD UREA NITROGEN 19 MG/DL (7-18); CALCIUM LEVEL 9.1 MG/DL (8.5-10.1); CARBON DIOXIDE LEVEL 26 MEQ/L (21-32); CHLORIDE LEVEL 110 MEQ/L (98-107); CREATININE FOR GFR 0.65 MG/DL (0.55-1.30); GLOMERULAR FILTRATION RATE > 60.0 (>51); GLUCOSE, FASTING 95 MG/DL (70-100); POTASSIUM SERUM 3.9 MEQ/L (3.5-5.1); SODIUM LEVEL 145 MEQ/L (136-145)
[2017-09-06 14:32] LABS: TOTAL 25(OH) VITAMIN D 32.9 NG/ML (30.0-100.0)
[2017-09-10 00:37] LABS: LEVETIRACETAM (KEPPRA) 11.2 ug/mL (10.0-40.0)
== END ==
LOC: M LABNEURO 11:45
DX: G40.509 Epileptic seizures related to external causes, not intractable, without status epilepticus (principal); E55.9 Vitamin D deficiency, unspecified
CPT/HCPCS: 82306

== ENCOUNTER → 2017-11-26 | Outpatient (REF) | payer OTHER, MEDICAID ==
[2017-11-30 00:06] LABS: LEVETIRACETAM (KEPPRA) 12.6 ug/mL (10.0-40.0)
== END ==
LOC: M LABNEURO 09:43
DX: G40.909 Epilepsy, unspecified, not intractable, without status epilepticus (principal)

== ENCOUNTER → 2019-01-05 | Outpatient (REF) | payer MEDICARE, BC ==
[2019-01-05 14:09] LABS: ALBUMIN 3.8 GM/DL (3.2-5.2); ALT/SGPT 44 U/L (12-78); BILIRUBIN,TOTAL 0.6 MG/DL (0.2-1.0); BLOOD UREA NITROGEN 16 MG/DL (7-18); CALCIUM LEVEL 9.6 MG/DL (8.5-10.1); CARBON DIOXIDE LEVEL 27 MEQ/L (21-32); CHLORIDE LEVEL 106 MEQ/L (98-107); CHOLESTEROL LEVEL 231 MG/DL (<200); CHOLESTEROL RISK RATIO 4.529 (<5); CREATININE FOR GFR 0.72 MG/DL (0.55-1.30); GLOMERULAR FILTRATION RATE > 60.0 (>51); GLUCOSE, FASTING 101 MG/DL (70-100); HDL CHOLESTEROL 51 MG/DL (>40); LDL CHOLESTEROL 132 MG/DL (<100); NON-HDL-C 180 MG/DL; SODIUM LEVEL 141 MEQ/L (136-145); TOTAL PROTEIN 7.6 GM/DL (6.4-8.2); TRIGLYCERIDES LEVEL 238 MG/DL (<150)
[2019-01-05 14:19] LABS: TOTAL 25(OH) VITAMIN D 23.2 NG/ML (30.0-100.0)
== END ==
LOC: M LABNEURO 08:10
PROVIDERS: ATTEND Family Medicine
DX: Z13.220 Encounter for screening for lipoid disorders (principal); Z13.1 Encounter for screening for diabetes mellitus; E55.9 Vitamin D deficiency, unspecified; E78.00 Pure hypercholesterolemia, unspecified

== ENCOUNTER → 2019-01-05 | Outpatient (REF) | payer BC, MEDICARE | LOC: M LABNEURO 08:18 | PROVIDERS: ATTEND Physician Assistant Medical | DX: R56.9 Unspecified convulsions (principal) ==

== ENCOUNTER → 2019-10-12 | Outpatient (CLI) | payer MEDICARE ==
--- NOTE | 2019-10-14 13:12 | REPMRS ---
Patient History The patient states she had a clinical breast exam in 09/2019. No known family history of cancer. Took hormonal contraceptives for 18 years. Digital Woman Screen Mammo: October 12, 2019 - Exam #: [id number] Bilateral CC and MLO view(s) were taken. Technologist: Daija Martinez, Technologist Prior study comparison: February 24, 2017, digital woman screen mammo performed at [facility]. August 22, 2014, digital woman screen mammo performed at [facility]. June 19, 2013, digital woman screen mammo performed at [facility]. FINDINGS: There are scattered fibroglandular densities. The Volpara volumetric breast density category is:B. There has been no change in the appearance of the mammogram from the prior studies. There is a mild amount of scattered fibroglandular density which is fairly symmetric. There is no interval development of dominant mass, architectural distortion, or grouped microcalcification suggestive of malignancy. 3-D tomosynthesis shows no additional findings. Assessment: BI-RADS/ACR category 1 mammogram. Negative Mammogram. Recommendation Routine screening mammogram of both breasts in 1 year (for women over age 40). This patient's Lifetime Breast Cancer Risk is estimated at 10.6 %. This mammogram was interpreted with the aid of an FDA-approved computer-aided dectection system. Electronically Signed By: Vignesh Armenta MD 10/14/19 [id number]
== END ==
LOC: M WHC 10:12
PROVIDERS: ATTEND Nurse Practitioner Women's Health
DX: Z12.31 Encounter for screening mammogram for malignant neoplasm of breast (principal); Z12.4 Encounter for screening for malignant neoplasm of cervix; Z92.0 Personal history of contraception
CPT/HCPCS: 77063; 77067; 87624; G0123

== ENCOUNTER → 2019-12-28 | Outpatient (CLI) | payer MEDICARE | LOC: M WUC 09:48 | PROVIDERS: ATTEND Physician Assistant Medical | DX: R56.9 Unspecified convulsions (principal) ==

== ENCOUNTER → 2019-12-28 | Outpatient (CLI) | payer MEDICARE ==
[2019-12-28 13:49] LABS: BASO # 0.1 10^3/uL (0.0-0.2); BASO % 0.8 % (0.0-1.0); EOS # 0.3 10^3/uL (0.0-0.5); EOS % 3.2 % (0.0-3.0); HEMATOCRIT 44.7 % (36.0-47.0); HEMOGLOBIN 14.3 g/dl (12.0-15.5); LYMPH # 3.7 10^3/uL (1.5-5.0); LYMPH % 42.1 % (24.0-44.0); MEAN CORPUSCULAR HEMOGLOBIN 29.3 pg (27.0-33.0); MEAN CORPUSCULAR VOLUME 91.6 fl (80.0-96.0); MONO # 0.7 10^3/uL (0.0-0.8); MONO % 8.5 % (0.0-5.0); NEUTROPHILS % 45.2 % (36.0-66.0); PLATELET COUNT, AUTOMATED 270 10^3/uL (150-450); RED BLOOD COUNT 4.88 10^6/uL (4.00-5.40); WHITE BLOOD COUNT 8.8 10^3/uL (4.0-10.0)
[2019-12-28 14:29] LABS: ALBUMIN 3.9 GM/DL (3.2-5.2); ALT/SGPT 34 U/L (12-78); BILIRUBIN,TOTAL 0.6 MG/DL (0.2-1.0); BLOOD UREA NITROGEN 17 MG/DL (7-18); CALCIUM LEVEL 9.5 MG/DL (8.5-10.1); CARBON DIOXIDE LEVEL 28 MEQ/L (21-32); CHLORIDE LEVEL 106 MEQ/L (98-107); CHOLESTEROL LEVEL 211 MG/DL (<200); CHOLESTEROL RISK RATIO 4.057 (<5); CREATININE FOR GFR 0.82 MG/DL (0.55-1.30); FREE T4 1.09 NG/DL (0.76-1.46); GLOMERULAR FILTRATION RATE > 60.0 (>51); GLUCOSE, FASTING 99 MG/DL (70-100); HDL CHOLESTEROL 52 MG/DL (>40); LDL CHOLESTEROL 118 MG/DL (<100); NON-HDL-C 159 MG/DL; POTASSIUM SERUM 4.4 MEQ/L (3.5-5.1); SODIUM LEVEL 138 MEQ/L (136-145); TOTAL PROTEIN 7.6 GM/DL (6.4-8.2); TRIGLYCERIDES LEVEL 206 MG/DL (<150)
== END ==
LOC: M WUC 09:43
PROVIDERS: ATTEND Physician Assistant
DX: E55.9 Vitamin D deficiency, unspecified (principal); Z13.29 Encounter for screening for other suspected endocrine disorder; Z13.220 Encounter for screening for lipoid disorders

== ENCOUNTER → 2020-07-08 | Outpatient (CLI) | payer MEDICARE ==
[2020-07-08 10:15] LABS: BASO # 0.1 10^3/uL (0.0-0.2); BASO % 0.8 % (0.0-1.0); EOS # 0.3 10^3/uL (0.0-0.5); EOS % 3.6 % (0.0-3.0); HEMATOCRIT 43.7 % (36.0-47.0); HEMOGLOBIN 14.1 g/dl (12.0-15.5); LYMPH # 3.6 10^3/uL (1.5-5.0); LYMPH % 47.7 % (24.0-44.0); MEAN CORPUSCULAR HEMOGLOBIN 29.3 pg (27.0-33.0); MEAN CORPUSCULAR HGB CONC 32.3 g/dl (32.0-36.5); MEAN CORPUSCULAR VOLUME 90.9 fl (80.0-96.0); MONO # 0.6 10^3/uL (0.0-0.8); MONO % 8.2 % (2.0-8.0); NEUTROPHILS # 2.9 10^3/uL (1.5-8.5); NEUTROPHILS % 39.4 % (36.0-66.0); PLATELET COUNT, AUTOMATED 261 10^3/uL (150-450); RED BLOOD COUNT 4.81 10^6/uL (4.00-5.40); WHITE BLOOD COUNT 7.5 10^3/uL (4.0-10.0)
[2020-07-08 10:56] LABS: ALBUMIN 3.6 GM/DL (3.2-5.2); ALT/SGPT 33 U/L (12-78); BILIRUBIN,TOTAL 0.7 MG/DL (0.2-1.0); BLOOD UREA NITROGEN 16 MG/DL (7-18); CALCIUM LEVEL 8.8 MG/DL (8.8-10.2); CARBON DIOXIDE LEVEL 27 MEQ/L (21-32); CHLORIDE LEVEL 105 MEQ/L (98-107); CHOLESTEROL LEVEL 198 MG/DL (<200); CHOLESTEROL RISK RATIO 3.882 (<5); CREATININE FOR GFR 0.75 MG/DL (0.55-1.30); GLOMERULAR FILTRATION RATE > 60.0 (>45); GLUCOSE, FASTING 103 MG/DL (70-100); HDL CHOLESTEROL 51 MG/DL (>40); LDL CHOLESTEROL 115 MG/DL (<100); NON-HDL-C 147 MG/DL; SODIUM LEVEL 138 MEQ/L (136-145); TOTAL 25(OH) VITAMIN D 20.6 NG/ML (30.0-100.0); TOTAL PROTEIN 7.4 GM/DL (6.4-8.2); TRIGLYCERIDES LEVEL 161 MG/DL (<150)
== END ==
LOC: M WUC 08:16
PROVIDERS: ATTEND Family Medicine
DX: E78.2 Mixed hyperlipidemia (principal); E55.9 Vitamin D deficiency, unspecified

== ENCOUNTER → 2020-12-27 | Outpatient (CLI) | payer MEDICARE | LOC: M WUC 10:37 | PROVIDERS: ATTEND Physician Assistant Medical | DX: R56.9 Unspecified convulsions (principal) ==

== ENCOUNTER → 2021-01-27 | Outpatient (CLI) | payer MEDICARE ==
[~2021-01-27] MED LIST changes: +ISOVUE-370 76% 100ML VIAL ONE
--- NOTE | 2021-01-27 21:40 | REPVR ---
PROCEDURE INFORMATION: Exam: CT Head With Contrast Exam date and time: 01/27/2021 2:39 PM Age: 60 years old Clinical indication: Condition or disease; Aneurysm, cerebral; Prior surgery; Surgery date: 6+ months; Additional info: Carotid/cerebral aneurysm, epileptic seiz, mening TECHNIQUE: Imaging protocol: Computed tomography of the head with intravenous contrast. Radiation optimization: All CT scans at this facility use at least one of these dose optimization techniques: automated exposure control; mA and/or kV adjustment per patient size (includes targeted exams where dose is matched to clinical indication); or iterative reconstruction. Contrast material: ISOVUE 370; Contrast volume: 100 ml; Contrast route: INTRAVENOUS (IV); COMPARISON: CT Head without contrast 08/03/2016 11:47 AM FINDINGS: Brain: Approximately 2.1 cm homogeneously enhancing extra-axial mass along the anterior frontal convexity abutting the falx cerebrum and skull base, most suspected to reflect meningioma. Chronic encephalomalacia changes in the anterior frontal lobes. No evidence of acute intracranial hemorrhage or extra-axial fluid collection. No midline shift. Isidro-white matter differentiation is intact. Cerebral ventricles: Unremarkable. No ventriculomegaly. Bones/joints: Chronic right frontal craniotomy. Hyperostosis of the calvarium. No acute fracture. Paranasal sinuses: Visualized sinuses are unremarkable. No fluid levels. Mastoid air cells: Unremarkable. Soft tissues: Unremarkable. IMPRESSION: Approximately 2.1 cm homogeneously enhancing extra-axial mass along the anterior frontal convexity abutting the falx cerebrum and skull base, most suspected to reflect meningioma. Recommend further evaluation with MRI brain with and without contrast. Electronically signed by: Deo Perez On 01/27/2021 21:39:32 PM
--- NOTE | 2021-01-27 22:11 | REPVR ---
PROCEDURE INFORMATION: Exam: CT Angiography Head With Contrast, Arteriography Exam date and time: 01/27/2021 2:39 PM Age: 60 years old Clinical indication: Condition or disease; Aneurysm, cerebral; Prior surgery; Surgery date: 6+ months; Additional info: Carotid/cerebral aneurysm, epileptic seiz, mening TECHNIQUE: Imaging protocol: Computed tomography angiography of the head with contrast. Exam focused on the arteries. 3D rendering (Not supervised by radiologist): MIP and/or 3D reconstructed images were created by the technologist. Radiation optimization: All CT scans at this facility use at least one of these dose optimization techniques: automated exposure control; mA and/or kV adjustment per patient size (includes targeted exams where dose is matched to clinical indication); or iterative reconstruction. Contrast material: ISOVUE 370; Contrast volume: 100 ml; Contrast route: INTRAVENOUS (IV); COMPARISON: MRA HEAD WITHOUT FOL BY WITH 07/21/2016 3:28 PM FINDINGS: ANTERIOR CIRCULATION: Right internal carotid artery: Intracranial segment is patent with no evidence of hemodynamically significant stenosis. No aneurysm. Right middle cerebral artery: No occlusion or significant stenosis. No aneurysm. Right anterior cerebral artery: No occlusion or significant stenosis. No aneurysm. Left internal carotid artery: Intracranial segment is patent with no evidence of hemodynamically significant stenosis. No aneurysm. Left middle cerebral artery: No occlusion or significant stenosis. No aneurysm. Left anterior cerebral artery: No occlusion or significant stenosis. No aneurysm. POSTERIOR CIRCULATION: Right vertebral artery: No occlusion or significant stenosis. No aneurysm. Left vertebral artery: No occlusion or significant stenosis. No aneurysm. Basilar artery: No occlusion or significant stenosis. No aneurysm. Right posterior cerebral artery: No occlusion or significant stenosis. No aneurysm. Left posterior cerebral artery: No occlusion or significant stenosis. No aneurysm. IMPRESSION: No intracranial arterial aneurysm, occlusion, or significant stenosis. Please refer to CT head with IV contrast for additional findings. Electronically signed by: Deo Perez On 01/27/2021 22:11:17 PM
== END ==
LOC: M PLAIMG 13:51
PROVIDERS: ATTEND Physician Assistant Medical
DX: R93.0 Abnormal findings on diagnostic imaging of skull and head, not elsewhere classified (principal); I72.0 Aneurysm of carotid artery; D32.0 Benign neoplasm of cerebral meninges; I67.1 Cerebral aneurysm, nonruptured; G40.509 Epileptic seizures related to external causes, not intractable, without status epilepticus
CPT/HCPCS: 70460; 70496; Q9967

== ENCOUNTER → 2021-05-21 | Outpatient (REF) | payer MEDICARE ==
[~2021-05-21] MED LIST changes: -ISOVUE-370 76% 100ML VIAL ONE
[2021-05-21 16:34] LABS: HEMATOCRIT 43.5 % (36.0-47.0); HEMOGLOBIN 14.3 g/dl (12.0-15.5); MEAN CORPUSCULAR HGB CONC 32.9 g/dl (32.0-36.5); MEAN CORPUSCULAR VOLUME 91.2 fl (80.0-96.0); PLATELET COUNT, AUTOMATED 252 10^3/uL (150-450); RED BLOOD COUNT 4.77 10^6/uL (4.00-5.40); WHITE BLOOD COUNT 9.3 10^3/uL (4.0-10.0)
[2021-05-21 17:02] LABS: ALBUMIN 3.8 GM/DL (3.2-5.2); ALT/SGPT 30 U/L (12-78); BILIRUBIN,TOTAL 0.3 MG/DL (0.2-1.0); BLOOD UREA NITROGEN 19 MG/DL (7-18); CALCIUM LEVEL 9.8 MG/DL (8.8-10.2); CARBON DIOXIDE LEVEL 29 MEQ/L (21-32); CHLORIDE LEVEL 106 MEQ/L (98-107); CHOLESTEROL LEVEL 206 MG/DL (<200); CHOLESTEROL RISK RATIO 4.382 (<5); CREATININE FOR GFR 0.78 MG/DL (0.55-1.30); FREE T4 1.03 NG/DL (0.76-1.46); GLOMERULAR FILTRATION RATE > 60.0 (>45); GLUCOSE, FASTING 84 MG/DL (70-100); HDL CHOLESTEROL 47 MG/DL (>40); LDL CHOLESTEROL 104 MG/DL (<100); NON-HDL-C 159 MG/DL; POTASSIUM SERUM 4.6 MEQ/L (3.5-5.1); SODIUM LEVEL 139 MEQ/L (136-145); TOTAL PROTEIN 7.5 GM/DL (6.4-8.2); TRIGLYCERIDES LEVEL 273 MG/DL (<150)
[2021-05-21 18:07] LABS: HEMOGLOBIN A1c 5.8 %
[2021-05-21 18:28] LABS: TOTAL 25(OH) VITAMIN D 33.4 NG/ML (30.0-100.0)
== END ==
LOC: M SFHCADAM 11:17
PROVIDERS: ATTEND Family Medicine
DX: G40.509 Epileptic seizures related to external causes, not intractable, without status epilepticus (principal); E78.5 Hyperlipidemia, unspecified; E66.9 Obesity, unspecified; Z13.1 Encounter for screening for diabetes mellitus; E55.9 Vitamin D deficiency, unspecified

== ENCOUNTER → 2021-05-22 | Outpatient (CLI) | payer MEDICARE | LOC: M WHC 08:37 | PROVIDERS: ATTEND Family Medicine | DX: Z12.31 Encounter for screening mammogram for malignant neoplasm of breast (principal) ==

== ENCOUNTER → 2021-12-29 | Outpatient (CLI) | payer MEDICARE ==
[2021-12-29 12:48] LABS: BASO # 0.1 10^3/uL (0.0-0.2); BASO % 0.6 % (0.0-1.0); EOS # 0.2 10^3/uL (0.0-0.5); EOS % 1.7 % (0.0-3.0); HEMATOCRIT 41.7 % (36.0-47.0); HEMOGLOBIN 13.6 g/dl (12.0-15.5); LYMPH % 42.8 % (24.0-44.0); MEAN CORPUSCULAR HEMOGLOBIN 29.2 pg (27.0-33.0); MEAN CORPUSCULAR HGB CONC 32.6 g/dl (32.0-36.5); MEAN CORPUSCULAR VOLUME 89.5 fl (80.0-96.0); MONO # 0.8 10^3/uL (0.0-0.8); MONO % 8.9 % (2.0-8.0); NEUTROPHILS # 4.3 10^3/uL (1.5-8.5); NEUTROPHILS % 45.9 % (36.0-66.0); PLATELET COUNT, AUTOMATED 241 10^3/uL (150-450); RED BLOOD COUNT 4.66 10^6/uL (4.00-5.40); WHITE BLOOD COUNT 9.4 10^3/uL (4.0-10.0)
[2021-12-29 15:21] LABS: ALBUMIN 3.6 GM/DL (3.2-5.2); ALT/SGPT 27 U/L (12-78); BILIRUBIN,TOTAL 0.4 MG/DL (0.2-1.0); BLOOD UREA NITROGEN 17 MG/DL (7-18); CALCIUM LEVEL 9.6 MG/DL (8.8-10.2); CARBON DIOXIDE LEVEL 28 MEQ/L (21-32); CHLORIDE LEVEL 104 MEQ/L (98-107); CREATININE FOR GFR 0.79 MG/DL (0.55-1.30); GLOMERULAR FILTRATION RATE > 60.0 (>45); GLUCOSE, FASTING 89 MG/DL (70-100); POTASSIUM SERUM 4.3 MEQ/L (3.5-5.1); SODIUM LEVEL 137 MEQ/L (136-145); TOTAL PROTEIN 7.5 GM/DL (6.4-8.2)
== END ==
LOC: M WUC 11:36
PROVIDERS: ATTEND Psychiatry & Neurology Neurology
DX: Z79.899 Other long term (current) drug therapy (principal)

== ENCOUNTER → 2022-02-20 | Outpatient (CLI) | payer MEDICARE ==
[~2022-02-20] MED LIST changes: +ISOVUE-370 76% 100ML VIAL As Ordered ONE
== END ==
LOC: M RAD 15:38
PROVIDERS: ATTEND Psychiatry & Neurology Neurology
DX: D32.0 Benign neoplasm of cerebral meninges (principal)
CPT/HCPCS: 70470; Q9967

== ENCOUNTER → 2022-05-28 | Outpatient (REF) | payer MEDICARE ==
[~2022-05-28] MED LIST changes: -ISOVUE-370 76% 100ML VIAL As Ordered ONE
== END ==
LOC: M SFHCADAM 11:35
PROVIDERS: ATTEND Family Medicine
DX: Z12.11 Encounter for screening for malignant neoplasm of colon (principal)

== ENCOUNTER → 2022-05-29 | Outpatient (CLI) | payer MEDICARE | LOC: M WHC 09:59 | PROVIDERS: ATTEND Family Medicine | DX: Z12.31 Encounter for screening mammogram for malignant neoplasm of breast (principal) ==

== ENCOUNTER 2022-08-10 09:05 | Day surgery (SDC) | payer MEDICARE ==
[~2022-08-10 09:05] MED LIST changes: +LIDOCAINE 2% 100MG/5ML SDV (FOR ANES.) As Ordered ONE; +NS 1,000 ML IV ONE; +propofoL 200 MG/20 ML VIAL As Ordered ONE
[2022-08-10 11:42] VITALS: TEMP 97.1
[2022-08-10 12:15] VITALS: BP 120/68; O2SAT 95
== END 2022-08-10 12:14 | disposition home or self-care (01) ==
LOC: M OPP 09:05
PROVIDERS: ATTEND Internal Medicine Gastroenterology
DX: D12.3 Benign neoplasm of transverse colon (principal); D12.4 Benign neoplasm of descending colon; D12.5 Benign neoplasm of sigmoid colon; K57.30 Diverticulosis of large intestine without perforation or abscess without bleeding; K64.8 Other hemorrhoids; R19.5 Other fecal abnormalities

== ENCOUNTER → 2023-05-10 | Outpatient (CLI) | payer MEDICARE ==
[~2023-05-10] MED LIST changes: -LIDOCAINE 2% 100MG/5ML SDV (FOR ANES.) As Ordered ONE; -NS 1,000 ML IV ONE; -propofoL 200 MG/20 ML VIAL As Ordered ONE
[2023-05-10 09:59] LABS: HEMATOCRIT 44.5 % (36.0-47.0); HEMOGLOBIN 14.6 g/dl (12.0-15.5); MEAN CORPUSCULAR HEMOGLOBIN 29.9 pg (27.0-33.0); MEAN CORPUSCULAR HGB CONC 32.8 g/dl (32.0-36.5); MEAN CORPUSCULAR VOLUME 91.2 fl (80.0-96.0); PLATELET COUNT, AUTOMATED 249 10^3/uL (150-450); RED BLOOD COUNT 4.88 10^6/uL (4.00-5.40); WHITE BLOOD COUNT 8.2 10^3/uL (4.0-10.0)
[2023-05-10 10:11] LABS: HEMOGLOBIN A1c 5.9 % (4.0-6.0)
[2023-05-10 10:23] LABS: THYROID STIMULATING HORMONE 1.871 uIU/ML (0.55-4.78)
[2023-05-10 10:24] LABS: TOTAL 25(OH) VITAMIN D 43.4 NG/ML (20.0-100.0)
[2023-05-10 10:25] LABS: FREE T4 1.07 NG/DL (0.89-1.76)
[2023-05-10 10:26] LABS: ALBUMIN 3.8 G/DL (3.2-5.2); ALKALINE PHOSPHATASE 110 U/L (46-116); ALT/SGPT 23 U/L (7.0-40); AST/SGOT 16 U/L (<34); BILIRUBIN,TOTAL 0.6 MG/DL (0.3-1.2); BLOOD UREA NITROGEN 15 MG/DL (9-23); CALCIUM LEVEL 9.5 MG/DL (8.3-10.6); CARBON DIOXIDE LEVEL 29 MMOL/L (20-31); CHLORIDE LEVEL 105 MMOL/L (98-107); CHOLESTEROL LEVEL 178 MG/DL (<200); CHOLESTEROL RISK RATIO 3.89 (<5); CREATININE FOR GFR 0.76 MG/DL (0.55-1.30); GLOMERULAR FILTRATION RATE > 60.0 (>45); GLUCOSE, FASTING 96 MG/DL (74-106); HDL CHOLESTEROL 45.7 MG/DL (>40); LDL CHOLESTEROL 90.3 MG/DL (<100); NON-HDL-C 132.3 MG/DL; POTASSIUM SERUM 4.4 MMOL/L (3.5-5.1); SODIUM LEVEL 139 MMOL/L (136-145); TOTAL PROTEIN 7.2 G/DL (5.7-8.2); TRIGLYCERIDES LEVEL 210 MG/DL (<150)
== END ==
LOC: M WUC 08:08
PROVIDERS: ATTEND Family Medicine
DX: G40.509 Epileptic seizures related to external causes, not intractable, without status epilepticus (principal); E78.5 Hyperlipidemia, unspecified; Z13.1 Encounter for screening for diabetes mellitus

== ENCOUNTER → 2023-06-08 | Outpatient (CLI) | payer MEDICARE | LOC: M WHC 11:17 | PROVIDERS: ATTEND Physician Assistant | DX: Z12.31 Encounter for screening mammogram for malignant neoplasm of breast (principal) ==

== ENCOUNTER → 2023-06-10 | Outpatient (REF) | payer MEDICARE | LOC: M SFHCADAM 09:02 | PROVIDERS: ATTEND Physician Assistant | DX: Z00.00 Encounter for general adult medical examination without abnormal findings (principal); R73.03 Prediabetes; E55.9 Vitamin D deficiency, unspecified; E66.9 Obesity, unspecified; E78.5 Hyperlipidemia, unspecified; G40.509 Epileptic seizures related to external causes, not intractable, without status epilepticus ==

== ENCOUNTER → 2023-07-01 | Outpatient (CLI) | payer MEDICARE ==
[~2023-07-01] MED LIST changes: +ISOVUE-370 76% 100ML VIAL ONE
== END ==
LOC: M PLAIMG 09:43
PROVIDERS: ATTEND Psychiatry & Neurology Neurology
DX: D32.0 Benign neoplasm of cerebral meninges (principal)
CPT/HCPCS: 70470; Q9967